=== PATIENT | female | born 1950 ===

== ENCOUNTER 2023-04-20 14:37 | Inpatient (IN) | payer MEDICARE, SELFPAY ==
--- NOTE | ~2023-04-20 | CT_ITS ---
EXAMINATION: CT head/brain wo IV con CLINICAL INFORMATION: Reason for Exam increase confusion COMPARISON: None. TECHNIQUE: Contiguous axial imaging was performed from the skull base to vertex without intravenous contrast. Sagittal and coronal reformatted images were obtained. This CT examination was performed using dose optimization techniques as appropriate, variously including the following: * Automated exposure control * Adjustment of mA and/or kV according to patient size (this includes techniques or standardized protocols for targeted exams where dose is matched to indication/reason for exam; i.e. extremities or head) Use of iterative reconstruction technique DLP: 582 mGy-cm FINDINGS: No acute osseous or soft tissue abnormality. The mastoids are clear. Right maxillary sinus mucous retention cyst. There is no evidence of acute intracranial hemorrhage or territorial infarction. No abnormal mass effect or midline shift is seen. Gandhi to white matter differentiation is well preserved. No extra-axial fluid collections are identified. No hydrocephalus. Proportional prominence of the ventricles and sulcal spaces is consistent with mild volume loss. Patchy periventricular and deep white matter hypoattenuation is consistent with mild small vessel ischemic changes. CT/CT head/brain wo IV con IMPRESSION: No acute intracranial abnormality including hemorrhage, mass effect, hydrocephalus, or acute territorial edematous infarction.
[2023-04-20 14:45] VITALS: BP 133/95; PULSE 85; RESP 18; TEMP 36.3; O2SAT 98
--- NOTE | 2023-04-20 15:04 | P.HPPS_ITS ---
HPI Date of Service: 04/20/23 Chief Complaint: Bipolar Sources of Information: patient interviewed, chart reviewed and crisis/core team assessment reviewed HPI Subjective Notes: Watkins Warning (given and shows understanding) and Conditional Voluntary Narrative: Mrs. Carter is a 73 year-old woman with hx of Bipolar Disorder who was brought on sect 12a from police to [facility] after son-in-law call reporting pt had endorse suicidal ideation with plan to OD due to misunderstanding that pt thought she was going on vacation with him and her grandchildren. Son-in-law was planning a vacation but not with pt. Per records, pt presented as guarded. She reported that neighbors had installed cameras to spy her. She denied SI/HI, but did acknowledge that she made comment to her son-in-law. Her utox was negative. CBC unremarkable. CMP- show slightly low potassium at 3.3, BUN 13, Creatinine 0.83. UA showed some elevation in WBC and leukocites but culture not done or not available. In the records, it also states that there were some concern in terms of confusion. Pt was seen by psychiatry while in the ED. It appears they communicated with her outpatient psychiatrist, Dr. Thomas who reports pt recently taken off lithium due to neurological concerns and pt was started on trileptal, increased in the ED to 600mg po BID, continued on olanzapine, which was increase while in the ED to 20mg po qhs. On the unit, pt presents as guarded, somewhat irritable and bothered that this parts data writer is asking questions, stating is all in my records. Pt reports she did report suicidal ideation with plan to OD to son-in-law. She reports I screwed up, I just want to go home. Pt reports my is driving me crazy. When asked to elaborate, pt changes topic and asks about the clothing that she has here, stating there is a bathing suit,which is not the case. When asked about hearing voices, pt reports that she does not hear voices but later reports that she has heard her son-in-law and talking about her. She reports she does not know what they were saying because it was soft but states she is sure they were talking about her. She denies suicidal or homicidal ideation. She reports fair sleep. She reports I don't take clonazepam for personal reasons. She reports back pain. She reports she feels unsteady on her feet, now ambulating with walker, although at home is independent. Pt would not provide more details as to why she feels unsteady in her feet. Past Psychiatric History: Inpatient: many in the past per record (no dates provided), last one 10/2020 OP: Dr. Thomas Past trials: olanzapine, lithium ( neurological se ), trileptal. Hx of suicide attempts: many in past no details provided Medical Evaluation Reviewed: Yes [facility] Family History: unknown Social History: Pt lives with . She has a daughter who in 2019 of cancer. She still has a living child. Substance History: None Trauma History: Per record, extensive childhood trauma. Trauma related to losing daughter back in 2019. Diagnostics Labs 04/21/23 06:11 Meds/Allergies Meds Home Medications Medication Instructions Recorded Confirmed Type benztropine 0.5 mg PO BID 04/20/23 04/20/23 History clonazepam 0.5 mg PO BEDTIME PRN Sleep 04/20/23 04/20/23 History cyclobenzaprine 10 mg tablet 10 mg PO TID PRN muscle spasm 04/20/23 04/20/23 History lithium carbonate 600 mg capsule 600 mg PO BEDTIME 04/20/23 04/20/23 History olanzapine 20 mg PO BEDTIME 04/20/23 04/20/23 History oxcarbazepine 300 mg PO DAILY 04/20/23 04/20/23 History oxcarbazepine 600 mg tablet 600 mg PO BEDTIME 04/20/23 04/20/23 History Allergies Allergies Allergy/AdvReac Type Severity Reaction Status Date / Time nickel Allergy Unknown Unknown Verified 04/20/23 15:12 Mental Status Exam Mental Status Exam Narrative: Appearance: wearing casual clothing, fair hygiene in NAD Behavior: guarded at times Psychomotor: no agitation or retardation noted Speech: clear, some mild delayed in response rate, regular rhythm/volume, spontaneous TP: mostly linear but some thought blocking and derailment at times TC: wanting to go home but at same time, asking about help with her health Mood: tired Affect: congruent SI: denies HI: denies AH/VH: denies but appears internally preoccupied. Delusions: somewhat guarded, not overt delusional content reported but some suspiciousness Insight/judgment: poor x 2. Memory/cog: alert, oriented to place, month, year. pending MOCA. Assessment & Plan Assessment & Plan (1) Bipolar 1 disorder, depressed: Status: Acute Code(s): F31.9 - Bipolar disorder, unspecified Plan Mr. Carter is a 73 year-old woman with hx of Bipolar type 1 Disorder who was brought on a sect 12a after she reported suicidal ideation with plan to OD after learning she was not going on vacation with son-in-law and grandchildren. Pt also apparently has reported that neighbors had cameras and were spying on her. Pt denies SI/HI. But does appear internally preoccupied with some thought blocking, reporting that and son-in-law were talking about her but she couldn't hear but was sure this was the case. Utox is neg. In the ED, trileptal was increased to 600mg po BID and olanzapine increased to 20mg po qhs. Pt reports unsteady gait, does not provide much detail but will assess ortho VS as she was ambulating independently at home. We discussed risks, benefits and alternative treatment options. PLAN 1. Admit to S1, 5 minutes checks 2. continue olanzapine 20mg po qhs- monitor Orth hotn, unsteady gait, over sedation 3. Continue trileptal 600mg po BID- monitor hyponatremia 4. Obtain collateral information 5. Aftercare planning. Patient educated on: diagnosis and medication risk/benefits Reason for continued inpatient stay Substantial Risk for: harm to self and inability to function Statement Statement: I have reviewed the history and physical and performed a pertinent examination on my patient. No changes have occurred unless specified. If the History and Physical was not performed prior to admission, the Hospitalist's service will be consulted for completing the admission physical. Time Spent With Patient Time: Total time managing care of this patient today ____ minutes.
[2023-04-20 18:00] VITALS: BP 136/88; PULSE 67; RESP 16; O2SAT 98
[2023-04-20 18:37] VITALS: BMI 22.9
--- NOTE | 2023-04-20 19:00 | PC.ADMIT ---
Pt. arrived on unit from [facility] ED at 14:45 via stretcher accompanied by 2 weapons mechanic. Transferred with assist of 2 to . Pt. signed CV . Oriented to room, unit, no smoking and visitor policies. Pt. A & O X 4. Not forthcoming with details related to situation in regard to events that led to her admission, but acknowledges events when confronted. Pt. with long history of Bipolar disorder and psych admissions, including after suicide by overdose attempts. Pt. lives in private home with . The lost a daughter to breast CA in 2019. daughter's and son live nearby. Pt. had thought she was to go on [place] vacation with son in law and grandson, had luggage packed, and when she learned she was not going threatened to kill herself, after which ANKITA notified EMS and pt. was transported to [facility] ED. Pt. has had major functional decline recently. She has had a shuffling gait, weakness, and reports multiple falls. She also reports she is newly incontinent, has lost weight, and has had problems with being disturbed by light. Pt. is requiring assist of 2 for transfers and walking a few steps. Pt.'s informed by phone of pt's admission.
[2023-04-20] MEDS: Benztropine Mesylate 0.5 MG TABLET PO (19:51)
[2023-04-20] MEDS: Lithium Carbonate 300 MG CAPSULE PO (19:52)
[2023-04-20] MEDS: traZODone HCL 50 MG TABLET PO (19:52)
[2023-04-20] MEDS: OLANZapine 5 MG TABLET PO (19:52)
[2023-04-20] MEDS: clonazePAM 0.5 MG TABLET PO (20:01)
--- NOTE | 2023-04-20 21:22 | PC.NURSE ---
Pt became agitated when 2100 medications reviewed with her. pt went into a rant about zyprexa. zyprexa is garbage and makes me sleepy . your a med nurse and would not understand. i'm going to get out of bed and fall on the floor and maybe you people will get it. pt shown call cannon location and instructed to call for assistance if getting oob. bed alarms activated. pt has thrown red socks on the floor.
[2023-04-21 06:00] VITALS: BP 121/83; PULSE 92; RESP 16
[2023-04-21 06:47] LABS: Alanine Aminotransferase 6 U/L (0-31); Albumin Level 3.5 g/dL (3.5-5.0); Alkaline Phosphatase 85 U/L (39-117); Anion Gap 13 (12-20); Aspartate Amino Transferase 11 U/L (5-31); Bilirubin Total 0.3 mg/dL (0.0-1.0); Blood Urea Nitrogen 9 mg/dL (9-16); Calcium 9.6 mg/dL (8.4-10.2); Carbon Dioxide 25 mmol/L (22-29); Chloride 108 mmol/L (96-108); Cholesterol 187 mg/dL; Creatinine Clr Calc Pharmacy 56.9; Estimated Glomerular Filt Rate > 60; Glucose Fasting 91 mg/dL (60-99); Glucose Random 91 mg/dL (60-115); HDL Cholesterol 33 mg/dL; LDL Cholesterol Calculated 124 mg/dl; Magnesium 2.1 mg/dL (1.6-2.6); Sodium 142 mmol/L (135-145); Total Protein 6.2 g/dL (6.5-8.0); Triglycerides 150 mg/dL
[2023-04-21 07:00] LABS: TSH reflex Free T4 0.35 uIU/mL (0.32-4.0)
[2023-04-21 07:01] LABS: Thyroid Stimulating Hormone 0.34 uIU/mL (0.32-4.0)
[2023-04-21 07:16] LABS: Folate 5.2 ng/mL (> or = 4.0); Vitamin B12 216 pg/mL (200-900)
[2023-04-21 07:54] LABS: Estimated Average Glucose 105 mg/dL; Hemoglobin A1c % 5.3 %
[2023-04-21] MEDS: Benztropine Mesylate 0.5 MG TABLET PO (08:39)
--- NOTE | 2023-04-21 12:44 | HO.PM.IMCN ---
History of Present Illness Data of Consult Service Date: 04/21/23 Primary Care Provider: Unknown Physician HPI Reason for consult: Admission H&P Pt is a 73-year-old female with a PMH significant for?bipolar disorder, anxiety, and depression who is admitted to [facility] for increasing depression with SI with plan to overdose on pills after she was not invited to a family trip to [place]. Medical consult for admission H&P. ?Patient has apparently been steady on her feet on the floor and was given a walker to ambulate, which is new for her. Patient states she sometimes has lower back pain but denies any lightheadedness or dizziness. Complains of soft, mushy stool for the past few weeks. Has been having 2 bowel movements per day when normally she would only have 1. He has also been experiencing increased urination recently. Patient denies fever, chills, nausea, vomiting. No abdominal pain. Denies chest pain/pressure, palpitations. No shortness of breath. Patient smokes 1/2 pack cigarettes a day. Labs reviewed, grossly unremarkable. [facility] Social History Household Members: Spouse Housing: House Do you presently have visiting nurse or other home services: No Patient Tobacco Use Status: Current everyday Tobacco user Tobacco use type: Cigarette Cigarette Packs Per Day: 0.5 Cigarettes Per Day: 10.0 Years Smoked: > 50 Smoked in Last 30 Days: Yes e-Cigarette/Vaping Use: Never Used Patient Interested in Nicotine Replacement: Yes (lozenges) Patient Given Instructions on How to Stop Smoking: No Second Hand Smoke Exposure: No Use of substances other than those prescribed or required for medical reasons: No Currently Displaying Signs/Symptoms of Drug Intoxication Withdrawal: No Any prior treatment program specific to substance use: No Have you been hit, kicked, punched, or otherwise hurt by someone within the past year? If so, by whom?: No Do you feel safe in your current relationship?: Yes Is there a partner from a previous relationship who is making you feel unsafe now?: No Are you made to feel afraid or neglected: No ( Except when they say they're tooo busy for me. ) Spiritual Healthcare Practices: No Adventism Healthcare Practices: No Cultural Healthcare Practices: No Advance Directives: No Advance Directives Information Provided: No (Medical Condition) Do you have thoughts of harming others: None Do you have a plan to hurt others: No Plan Recently lost weight without trying: Yes How much weight loss: 24-33 pounds Eating poorly because of decreased appetite: Yes Nutrition screen score: 6 Nutrition Risks: Poor intake 0-25% >4 days Patient : No : No Poor oral hygiene: No service: No Sexual orientation: Straight/Heterosexual Meds Allergies Allergy/AdvReac Type Severity Reaction Status Date / Time nickel Allergy Unknown Unknown Verified 04/20/23 15:12 Active Medications: Current Medications Acetaminophen (Acetaminophen 325 Mg Tablet) 650 mg PO Q6H PRN PRN Reason: Headache/Pain Mild Scale (1-3) Al Hydroxide/Mg Hydroxide (Magnesium Hydrox/Alum Hydrox 30 Ml Oral.Susp) 30 ml PO Q6H PRN PRN Reason: Heartburn/Nausea Benztropine Mesylate (Benztropine Mesylate 0.5 Mg Tablet) 0.5 mg PO BID VELASQUEZ Last Admin: 04/21/23 08:39 Dose: 0.5 mg Clonazepam (Clonazepam 0.5 Mg Tablet) 0.5 mg PO BEDTIME PRN PRN Reason: Sleep Last Admin: 04/20/23 20:01 Dose: 0.5 mg Cyclobenzaprine HCl (Cyclobenzaprine Hcl 10 Mg Tablet) 10 mg PO TID PRN PRN Reason: muscle spasm Hydroxyzine HCl (Hydroxyzine Hcl 25 Mg Tablet) 25 mg PO Q6H PRN PRN Reason: Anxiety Magnesium Hydroxide (Milk Of Magnesia 30 Ml Oral.Susp) 30 ml PO DAILY PRN PRN Reason: Constipation Olanzapine (Olanzapine 5 Mg Tablet) 5 mg PO BEDTIME VELASQUEZ Last Admin: 04/20/23 19:52 Dose: 5 mg Olanzapine (Olanzapine 5 Mg Tablet) 5 mg PO TID PRN PRN Reason: agitation Trazodone HCl (Trazodone Hcl 50 Mg Tablet) 50 mg PO BEDTIME PRN PRN Reason: Insomnia Last Admin: 04/20/23 19:52 Dose: 50 mg Home Medications Medication Instructions Recorded Confirmed Last Taken Type benztropine 0.5 mg PO BID 04/20/23 04/20/23 Unknown History clonazepam 0.5 mg PO BEDTIME PRN Sleep 04/20/23 04/20/23 Unknown History cyclobenzaprine 10 mg tablet 10 mg PO TID PRN muscle spasm 04/20/23 04/20/23 Unknown History lithium carbonate 600 mg capsule 600 mg PO BEDTIME 04/20/23 04/20/23 Unknown History olanzapine 20 mg PO BEDTIME 04/20/23 04/20/23 Unknown History oxcarbazepine 300 mg PO DAILY 04/20/23 04/20/23 Unknown History oxcarbazepine 600 mg tablet 600 mg PO BEDTIME 04/20/23 04/20/23 Unknown History Physical Exam Vital Signs and Narrative: Vital Signs: Last Vital Signs Temp 97.3 F 04/20/23 14:45 Pulse 92 04/21/23 06:00 Resp 16 04/21/23 06:00 BP 121/83 04/21/23 06:00 Pulse Ox 98 04/20/23 18:00 O2 Del Method Room Air 04/21/23 06:00 BMI result Body Mass Index 22.9 Constitutional: Alert, in no acute distress. Mental Status: Oriented to person, place and time. Eyes: Pupils are equal, round, and reactive to light. Ear, Nose, and Throat: Oropharynx clear, mucous membranes moist. Ears and nose without deformities. Trachea midline. Respiratory: Clear to auscultation bilaterally. No wheezing, rales, or rhonchi. Cardiovascular: S1, S2 regular. No murmurs, rubs, or gallops. Gastrointestinal: Abdomen soft, non-tender, non-distended. Normal bowel sounds. Neurologic: Cranial nerves II-XII are grossly intact bilaterally. No focal neurological deficits. Moves all extremities spontaneously. Skin: No rashes or lesions noted. Musculoskeletal: No cyanosis or clubbing. Extremities: No edema. Results Labs 04/21/23 06:11 Labs: Laboratory Results - last 24 hr 04/21/23 04/21/23 04/21/23 06:11 06:11 06:11 Anion Gap 13 Estim Creat Clear Calc 56.9 Estimated GFR > 60 Random Glucose 91 Fasting Glucose 91 Estimat Average Glucose 105 Hemoglobin A1c % 5.3 Calcium 9.6 Magnesium 2.1 Total Bilirubin 0.3 AST 11 ALT 6 Alkaline Phosphatase 85 Total Protein 6.2 L Albumin 3.5 Triglycerides 150 Cholesterol 187 LDL Cholesterol, Calc 124 HDL Cholesterol 33 Vitamin B12 216 Folate 5.2 TSH 0.34 04/21/23 06:11 Anion Gap Estim Creat Clear Calc Estimated GFR Random Glucose Fasting Glucose Estimat Average Glucose Hemoglobin A1c % Calcium Magnesium Total Bilirubin AST ALT Alkaline Phosphatase Total Protein Albumin Triglycerides Cholesterol LDL Cholesterol, Calc HDL Cholesterol Vitamin B12 Folate TSH 0.35 Assessment and Plan (1) Routine history and physical examination of adult: Status: Acute Plan Pt is a 73-year-old female with a PMH significant for?bipolar disorder, anxiety, and depression who is admitted to [facility] for increasing depression with SI with plan to overdose on pills after she was not invited to a family trip to [place]. Medical consult for admission H&P. Mood disorder Plan as per Psychiatry Polyuria Will obtain UA Follow UA, cultures Unsteadiness of feet Pt has been ambulating with walker while on unit, which is new to her Check orthostatics PT consult Continue use of walker as necessary Nicotine dependence NRT: jose antonio Thank you for allowing us to participate in the care of this patient. Will follow UA resutls. Please let us know if there are any acute complaints or questions. Time Spent With Patient Time: Total time managing care of this patient today ____ minutes.
--- NOTE | 2023-04-21 13:45 | MHC.CLN ---
NUTRITION CONSULT FOR WEIGHT LOSS. UNABLE TO CONFIRM WEIGHT HX. CURRENT BMI=22.9 WITHIN NORMAL LIMITS. OBSERVED AT LUNCH TODAY. EATING CHICKEN FROM [employer] BUT STATED THAT SHE WANTED SOMETHING ELSE. ALERTED STAFF. FOLLOW UP WEEKLY FOR INTAKE AND WEIGHT.
--- NOTE | 2023-04-21 14:55 | P.PNPSI_ITS ---
Subjective Subjective Date of Service: 04/21/23 Reason For Visit: Bipolar Subjective Notes: Conditional Voluntary Interim History: Pt continues to denied suicidal or homicidal ideation. She talks about son in law and talking about her. She presents as guarded at times. She states I also have confusion. She slept through the night. No behavioral concerns. Review of Systems Review of Systems Pt denies chest pain. She reports feeling like there is dirt in her eyes She reports loose stools. She reports poor appetite She reports back pain and feeling weak. Mental Status Exam Mental Status Exam Narrative: Appearance: wearing casual clothing, fair hygiene in NAD Behavior: guarded at times Psychomotor: no agitation or retardation noted Speech: clear, some mild delayed in response rate, regular rhythm/volume, spontaneous TP: mostly linear but some thought blocking and derailment at times TC: wanting to go home but at same time, asking about help with her health Mood: tired Affect: congruent SI: denies HI: denies AH/VH: denies but appears internally preoccupied. Delusions: somewhat guarded, not overt delusional content reported but some suspiciousness Insight/judgment: poor x 2. Memory/cog: alert, oriented to place, month, year. pending MOCA. Diagnostics Vital Signs (24Hr): Vital Signs - 24 hr 04/20/23 18:00 04/21/23 06:00 Pulse Rate 67 92 Respiratory Rate 16 16 Blood Pressure 136/88 121/83 Pulse Oximetry 98 Oxygen Delivery Method Room Air Room Air BMI result Body Mass Index 22.9 Labs 04/21/23 06:11 Labs: Laboratory Results - last 48 hr 04/21/23 04/21/23 04/21/23 06:11 06:11 06:11 Sodium 142 Potassium 4.0 Chloride 108 Carbon Dioxide 25 Anion Gap 13 BUN 9 Creatinine 0.75 Estim Creat Clear Calc 56.9 Estimated GFR > 60 Random Glucose 91 Fasting Glucose 91 Estimat Average Glucose 105 Hemoglobin A1c % 5.3 Calcium 9.6 Magnesium 2.1 Total Bilirubin 0.3 AST 11 ALT 6 Alkaline Phosphatase 85 Total Protein 6.2 L Albumin 3.5 Triglycerides 150 Cholesterol 187 LDL Cholesterol, Calc 124 HDL Cholesterol 33 Vitamin B12 216 Folate 5.2 TSH 0.34 04/21/23 06:11 Sodium Potassium Chloride Carbon Dioxide Anion Gap BUN Creatinine Estim Creat Clear Calc Estimated GFR Random Glucose Fasting Glucose Estimat Average Glucose Hemoglobin A1c % Calcium Magnesium Total Bilirubin AST ALT Alkaline Phosphatase Total Protein Albumin Triglycerides Cholesterol LDL Cholesterol, Calc HDL Cholesterol Vitamin B12 Folate TSH 0.35 Medications Medications Current Medications Acetaminophen (Acetaminophen 325 Mg Tablet) 650 mg PO Q6H PRN PRN Reason: Headache/Pain Mild Scale (1-3) Al Hydroxide/Mg Hydroxide (Magnesium Hydrox/Alum Hydrox 30 Ml Oral.Susp) 30 ml PO Q6H PRN PRN Reason: Heartburn/Nausea Benztropine Mesylate (Benztropine Mesylate 0.5 Mg Tablet) 0.5 mg PO BID VELASQUEZ Last Admin: 04/21/23 08:39 Dose: 0.5 mg Clonazepam (Clonazepam 0.5 Mg Tablet) 0.5 mg PO BEDTIME PRN PRN Reason: Sleep Last Admin: 04/20/23 20:01 Dose: 0.5 mg Cyclobenzaprine HCl (Cyclobenzaprine Hcl 10 Mg Tablet) 10 mg PO TID PRN PRN Reason: muscle spasm Hydroxyzine HCl (Hydroxyzine Hcl 25 Mg Tablet) 25 mg PO Q6H PRN PRN Reason: Anxiety Magnesium Hydroxide (Milk Of Magnesia 30 Ml Oral.Susp) 30 ml PO DAILY PRN PRN Reason: Constipation Nicotine Polacrilex (Nicotine Polacrilex 2 Mg Gum) 2 mg BUCCAL Q2H PRN PRN Reason: Nicotine Cravings Olanzapine (Olanzapine 5 Mg Tablet) 5 mg PO TID PRN PRN Reason: agitation Olanzapine (Olanzapine 10 Mg Tablet) 10 mg PO BEDTIME VELASQUEZ Oxcarbazepine (Oxcarbazepine 300 Mg Tablet) 600 mg PO BID VELASQUEZ Trazodone HCl (Trazodone Hcl 50 Mg Tablet) 50 mg PO BEDTIME PRN PRN Reason: Insomnia Last Admin: 04/20/23 19:52 Dose: 50 mg Allergies Allergies Allergy/AdvReac Type Severity Reaction Status Date / Time nickel Allergy Unknown Unknown Verified 04/20/23 15:12 Assessment & Plan Assessment & Plan (1) Bipolar 1 disorder, depressed: Status: Acute Code(s): F31.9 - Bipolar disorder, unspecified Plan Mr. Carter is a 73 year-old woman with hx of Bipolar type 1 Disorder who was brought on a sect 12a after she reported suicidal ideation with plan to OD after learning she was not going on vacation with son-in-law and grandchildren. Pt also apparently has reported that neighbors had cameras and were spying on her. Pt denies SI/HI. But does appear internally preoccupied with some thought blocking, reporting that and son-in-law were talking about her but she couldn't hear but was sure this was the case. Utox is neg. In the ED, trileptal was increased to 600mg po BID and olanzapine increased to 20mg po qhs. Pt reports unsteady gait, does not provide much detail but will assess ortho VS as she was ambulating independently at home. We discussed risks, benefits and alternative treatment options. PLAN 1. Admit to S1, 5 minutes checks 2. continue olanzapine 20mg po qhs- monitor Orth hotn, unsteady gait, over sedat ion 3. Continue trileptal 600mg po BID- monitor hyponatremia 4. Obtain collateral information 5. Aftercare planning. 04/21 continue tx. Reason for continued inpatient stay Substantial Risk for: inability to function Time Spent With Patient Time: Total time managing care of this patient today ____ minutes.
[2023-04-21 17:20] VITALS: BP 93/64; PULSE 104
[2023-04-21 20:00] VITALS: BP 104/69; PULSE 79; RESP 17; TEMP 36.7; O2SAT 96
[2023-04-21] MEDS: OXcarbazepine 300 MG TABLET 600 MG PO (20:52)
[2023-04-21] MEDS: traZODone HCL 50 MG TABLET PO (20:52)
[2023-04-21] MEDS: OLANZapine 10 MG TABLET 20 MG PO (20:53)
[2023-04-22 08:00] VITALS: BP 119/87; PULSE 102; RESP 18; TEMP 36.6; O2SAT 96
[2023-04-22] MEDS: OXcarbazepine 300 MG TABLET 600 MG PO ×2 (09:13→20:28)
--- NOTE | 2023-04-22 09:58 | HO.PSYCHPN ---
Subjective Subjective Date of Service: 04/22/23 Reason For Visit: Bipolar Interim History: Patient seen 04 22 23 case reviewed with nursing staff patient seen approximately 09:30. Patient is having difficulty with ambulation complaining of sedation less irritable and agitated admits to history of bipolar disorder. States she and her have not been getting along patient was seen by PT has a walker was not using a walker at home reportedly Medication Compliance: Yes Side effects from medications: Yes Mental Status Exam Mental Status Exam Narrative: Appearance: wearing casual clothing, tearful sad looking Behavior: guarded at times Psychomotor: Psychomotor retarded complains of lethargy Speech: clear, some mild delayed in response rate, regular rhythm/volume, spontaneous TP: mostly linear but some circumstantiality TC: wanting to go home , does state she and her have been arguing poverty of content Mood: tired Affect: congruent SI: denies HI: denies AH/VH: denies Delusions: somewhat guarded, no overt delusional content Insight/judgment: Does accept that she has psychiatric illness she has a history of bipolar disorder Memory/cog: alert, oriented to place, month, year. pending MOCA. Diagnostics Vital Signs (24Hr): Vital Signs - 24 hr 04/21/23 17:20 04/21/23 20:00 04/22/23 08:00 Temperature 98.0 F 97.8 F Pulse Rate 104 H 79 102 H Respiratory Rate 17 18 Blood Pressure 93/64 104/69 119/87 Pulse Oximetry 96 96 Oxygen Delivery Method Room Air Room Air BMI result Body Mass Index 22.9 Labs 04/21/23 06:11 Labs: Laboratory Results - last 48 hr 04/21/23 04/21/23 04/21/23 06:11 06:11 06:11 Sodium 142 Potassium 4.0 Chloride 108 Carbon Dioxide 25 Anion Gap 13 BUN 9 Creatinine 0.75 Estim Creat Clear Calc 56.9 Estimated GFR > 60 Random Glucose 91 Fasting Glucose 91 Estimat Average Glucose 105 Hemoglobin A1c % 5.3 Calcium 9.6 Magnesium 2.1 Total Bilirubin 0.3 AST 11 ALT 6 Alkaline Phosphatase 85 Total Protein 6.2 L Albumin 3.5 Triglycerides 150 Cholesterol 187 LDL Cholesterol, Calc 124 HDL Cholesterol 33 Vitamin B12 216 Folate 5.2 TSH 0.34 04/21/23 06:11 Sodium Potassium Chloride Carbon Dioxide Anion Gap BUN Creatinine Estim Creat Clear Calc Estimated GFR Random Glucose Fasting Glucose Estimat Average Glucose Hemoglobin A1c % Calcium Magnesium Total Bilirubin AST ALT Alkaline Phosphatase Total Protein Albumin Triglycerides Cholesterol LDL Cholesterol, Calc HDL Cholesterol Vitamin B12 Folate TSH 0.35 Medications Medications Current Medications Acetaminophen (Acetaminophen 325 Mg Tablet) 650 mg PO Q6H PRN PRN Reason: Headache/Pain Mild Scale (1-3) Al Hydroxide/Mg Hydroxide (Magnesium Hydrox/Alum Hydrox 30 Ml Oral.Susp) 30 ml PO Q6H PRN PRN Reason: Heartburn/Nausea Capsaicin (Capsaicin 0.025% Cream 60 Gm Tube) 1 appl TOPICAL TID PRN; Protocol PRN Reason: Pain, Moderate(Pain Scale 4-6) Clonazepam (Clonazepam 0.5 Mg Tablet) 0.5 mg PO BEDTIME PRN PRN Reason: Sleep Last Admin: 04/20/23 20:01 Dose: 0.5 mg Cyclobenzaprine HCl (Cyclobenzaprine Hcl 10 Mg Tablet) 10 mg PO TID PRN PRN Reason: muscle spasm Hydroxyzine HCl (Hydroxyzine Hcl 25 Mg Tablet) 25 mg PO Q6H PRN PRN Reason: Anxiety Loperamide HCl (Loperamide Hcl 2 Mg Capsule) 2 mg PO Q4H PRN PRN Reason: Loose Stool Magnesium Hydroxide (Milk Of Magnesia 30 Ml Oral.Susp) 30 ml PO DAILY PRN PRN Reason: Constipation Nicotine Polacrilex (Nicotine Polacrilex 2 Mg Gum) 2 mg BUCCAL Q2H PRN PRN Reason: Nicotine Cravings Olanzapine (Olanzapine 5 Mg Tablet) 5 mg PO TID PRN PRN Reason: agitation Olanzapine (Olanzapine 10 Mg Tablet) 20 mg PO BEDTIME [facility] Last Admin: 04/21/23 20:53 Dose: 20 mg Oxcarbazepine (Oxcarbazepine 300 Mg Tablet) 600 mg PO BID [facility] Last Admin: 04/22/23 09:13 Dose: 600 mg Trazodone HCl (Trazodone Hcl 50 Mg Tablet) 50 mg PO BEDTIME PRN PRN Reason: Insomnia Last Admin: 04/21/23 20:52 Dose: 50 mg Allergies Allergies Allergy/AdvReac Type Severity Reaction Status Date / Time nickel Allergy Unknown Unknown Verified 04/20/23 15:12 Assessment & Plan Assessment & Plan (1) Bipolar 1 disorder, depressed: Status: Acute Code(s): F31.9 - Bipolar disorder, unspecified Plan Mr. Carter is a 73 year-old woman with hx of Bipolar type 1 Disorder who was brought on a sect 12a after she reported suicidal ideation with plan to OD after learning she was not going on vacation with son-in-law and grandchildren. Pt also apparently has reported that neighbors had cameras and were spying on her. Pt denies SI/HI. But does appear internally preoccupied with some thought blocking, reporting that and son-in-law were talking about her but she couldn't hear but was sure this was the case. Utox is neg. In the ED, trileptal was increased to 600mg po BID and olanzapine increased to 20mg po qhs. Pt reports unsteady gait, does not provide much detail but will assess ortho VS as she was ambulating independently at home. We discussed risks, benefits and alternative treatment options. PLAN 1. Admit to S1, 5 minutes checks 2. continue olanzapine 20mg po qhs- monitor Orth hotn, unsteady gait, over sedation 3. Continue trileptal 600mg po BID- monitor hyponatremia 4. Obtain collateral information 5. Aftercare planning. 04/21 continue tx. 04/22/2023 Patient seen and a.m. on 04/22 case reviewed with nursing staff. Patient having difficulty with ambulation and balance difficulties. He is on Trileptal 600 b.i.d. given the fact that she was ambulating without a walker at home would try and change to 300 b.i.d. consideration could be given to use of pot Depakote at bedtime instead of Trileptal patient not grossly delusional appears depressed withdrawn consideration could be given to [facility] Spears which trying to coordinate care with outpatient psychiatrist in [place] Patient educated on: diagnosis and medication risk/benefits Informed Consent: further education needed Reason for continued inpatient stay Substantial Risk for: harm to others, inability to function and rapid decompensation Time Spent With Patient Time: Total time managing care of this patient today ____ minutes.
--- NOTE | 2023-04-22 16:19 | PC.NURSE ---
orthostatic vital signs taken at 1600.Supine 142/92 pulse 77, sitting 144/89 pulse 87, standing 138/83 pulse 97.
[2023-04-22 16:52] LABS: Appearance Urine Clear; Color Urine Yellow; Glucose Urine UA Negative (Negative); Leukocyte Esterase Urine Moderate (2+) (Negative); Nitrite Urine Negative (Negative); Specific Gravity - Urine 1.015 (1.005-1.025); UMIC TRIGGER UACC YES; Urine Blood Small (1+) (Negative); Urine Ketones Negative (Negative); Urine Protein Negative (Neg-Trace)
[2023-04-22 16:55] LABS: Bacteria Urine None Seen (None Seen); UACC Culture Trigger YES
--- NOTE | 2023-04-22 18:34 | PC.NURSE ---
Patient UA obtained. Dr. Jackson notified of results. Patient denies symptoms. Question of contamination.
[2023-04-22 19:45] VITALS: BP 119/85; PULSE 88; RESP 17; TEMP 36.5; O2SAT 96
[2023-04-22] MEDS: OLANZapine 10 MG TABLET 20 MG PO (20:28)
[2023-04-22] MEDS: clonazePAM 0.5 MG TABLET PO (20:31)
[2023-04-23 08:27] VITALS: BP 151/88; PULSE 88; RESP 18; TEMP 36.2; O2SAT 97
[2023-04-23] MEDS: OXcarbazepine 300 MG TABLET PO ×2 (08:41→21:01)
--- NOTE | 2023-04-23 10:30 | P.PNPSI_ITS ---
Subjective Subjective Date of Service: 04/23/23 Reason For Visit: Bipolar Interim History: Pt reports she feels depressed. She denies SI, but does report long hx of suicidal ideation. Her thought process is disorganized, she talks about her grandson not being told where she is and now she has to hide it. When asked if she can just tell him that she was in the hospital, pt goes on and on that he doesn't know. She also talks about her , he knows it all when asked to elaborate, she would not provide more information. She denies physical concerns including pain. She states she is confused but is oriented x 4. No aggression, will gathered more collateral information Medication Compliance: Yes Review of Systems Review of Systems Pt denies chest pain. She reports feeling like there is dirt in her eyes She reports loose stools. She reports poor appetite She reports back pain and feeling weak. Mental Status Exam Mental Status Exam Narrative: Appearance: wearing casual clothing, tearful sad looking Behavior: guarded at times Psychomotor: Psychomotor retarded complains of lethargy Speech: clear, some mild delayed in response rate, regular rhythm/volume, spontaneous TP: mostly linear but some circumstantiality TC: wanting to go home , does state she and her have been arguing poverty of content Mood: tired Affect: congruent SI: denies HI: denies AH/VH: denies Delusions: somewhat guarded, no overt delusional content Insight/judgment: Does accept that she has psychiatric illness she has a history of bipolar disorder Memory/cog: alert, oriented to place, month, year. pending MOCA. Diagnostics Vital Signs (24Hr): Vital Signs - 24 hr 04/22/23 19:45 04/23/23 08:27 Temperature 97.7 F 97.1 F Pulse Rate 88 88 Respiratory Rate 17 18 Blood Pressure 119/85 151/88 H Pulse Oximetry 96 97 Oxygen Delivery Method Room Air Room Air BMI result Body Mass Index 22.9 Labs 04/21/23 06:11 Labs: Laboratory Results - last 48 hr 04/22/23 16:12 Urine Color Yellow Urine Appearance Clear Urine pH 6.0 Ur Specific [place] 1.015 Urine Protein Negative Urine Glucose (UA) Negative Urine Ketones Negative Urine Blood Small (1+) H Urine Nitrite Negative Ur Leukocyte Esterase Moderate (2+) H Urine RBC 6-10 H Urine WBC 11-20 H Ur Squamous Epith Cells 6-10 Urine Bacteria None Seen Hyaline Casts 3-5 Medications Medications Current Medications Acetaminophen (Acetaminophen 325 Mg Tablet) 650 mg PO Q6H PRN PRN Reason: Headache/Pain Mild Scale (1-3) Al Hydroxide/Mg Hydroxide (Magnesium Hydrox/Alum Hydrox 30 Ml Oral.Susp) 30 ml PO Q6H PRN PRN Reason: Heartburn/Nausea Capsaicin (Capsaicin 0.025% Cream 60 Gm Tube) 1 appl TOPICAL TID PRN; Protocol PRN Reason: Pain, Moderate(Pain Scale 4-6) Clonazepam (Clonazepam 0.5 Mg Tablet) 0.5 mg PO BEDTIME PRN PRN Reason: Sleep Last Admin: 04/22/23 20:31 Dose: 0.5 mg Cyclobenzaprine HCl (Cyclobenzaprine Hcl 10 Mg Tablet) 10 mg PO TID PRN PRN Reason: muscle spasm Hydroxyzine HCl (Hydroxyzine Hcl 25 Mg Tablet) 25 mg PO Q6H PRN PRN Reason: Anxiety Loperamide HCl (Loperamide Hcl 2 Mg Capsule) 2 mg PO Q4H PRN PRN Reason: Loose Stool Magnesium Hydroxide (Milk Of Magnesia 30 Ml Oral.Susp) 30 ml PO DAILY PRN PRN Reason: Constipation Nicotine Polacrilex (Nicotine Polacrilex 2 Mg Gum) 2 mg BUCCAL Q2H PRN PRN Reason: Nicotine Cravings Olanzapine (Olanzapine 5 Mg Tablet) 5 mg PO TID PRN PRN Reason: agitation Olanzapine (Olanzapine 10 Mg Tablet) 20 mg PO BEDTIME [facility] Last Admin: 04/22/23 20:28 Dose: 20 mg Oxcarbazepine (Oxcarbazepine 300 Mg Tablet) 300 mg PO BID [facility] Last Admin: 04/23/23 08:41 Dose: 300 mg Trazodone HCl (Trazodone Hcl 50 Mg Tablet) 50 mg PO BEDTIME PRN PRN Reason: Insomnia Last Admin: 04/21/23 20:52 Dose: 50 mg Allergies Allergies Allergy/AdvReac Type Severity Reaction Status Date / Time nickel Allergy Unknown Unknown Verified 04/20/23 15:12 Assessment & Plan Assessment & Plan (1) Bipolar 1 disorder, depressed: Status: Acute Code(s): F31.9 - Bipolar disorder, unspecified Plan Mr. Carter is a 73 year-old woman with hx of Bipolar type 1 Disorder who was brought on a sect 12a after she reported suicidal ideation with plan to OD after learning she was not going on vacation with son-in-law and grandchildren. Pt also apparently has reported that neighbors had cameras and were spying on her. Pt denies SI/HI. But does appear internally preoccupied with some thought blocking, reporting that and son-in-law were talking about her but she couldn't hear but was sure this was the case. Utox is neg. In the ED, trileptal was increased to 600mg po BID and olanzapine increased to 20mg po qhs. Pt reports unsteady gait, does not provide much detail but will assess ortho VS as she was ambulating independently at home. We discussed risks, benefits and alternative treatment options. PLAN 1. Admit to S1, 5 minutes checks 2. continue olanzapine 20mg po qhs- monitor Orth hotn, unsteady gait, over sedation 3. Continue trileptal 600mg po BID- monitor hyponatremia 4. Obtain collateral information 5. Aftercare planning. 04/21 continue tx. 04/22/2023 Patient seen and a.m. on 04/22 case reviewed with nursing staff. Patient having difficulty with ambulation and balance difficulties. He is on Trileptal 600 b.i.d. given the fact that she was ambulating without a walker at home would try and change to 300 b.i.d. consideration could be given to use of pot Depakote at bedtime instead of Trileptal patient not grossly delusional appears depressed withdrawn consideration could be given to [facility] Spears which trying to coordinate care with outpatient psychiatrist in [place] 04/23 will lower olanzapine to 10mg po qhs due to pts' report of feeling sedated, although she does not appear this way. Reason for continued inpatient stay Substantial Risk for: inability to function Time Spent With Patient Time: Total time managing care of this patient today ____ minutes.
[2023-04-23] MEDS: hydrOXYzine HCL 25 MG TABLET PO (14:35)
[2023-04-23 18:00] VITALS: BP 153/83; PULSE 83; RESP 18; TEMP 36.6; O2SAT 99
[2023-04-23] MEDS: OLANZapine 10 MG TABLET PO (21:02)
[2023-04-23] MEDS: clonazePAM 0.5 MG TABLET PO (22:01)
[2023-04-24 08:00] VITALS: BP 137/92; PULSE 93; RESP 18; TEMP 36.4; O2SAT 96
--- NOTE | 2023-04-24 08:09 | HO.PSYCHPN ---
Subjective Subjective Date of Service: 04/24/23 Reason For Visit: Bipolar Interim History: The nursing staff reported the patient had been shuffling with unsteady gait. Her Zyprexa was lowered and she stated that she does not want to go home. She took her p.r.n. Klonopin at night and slept well after the medication. On interview the patient is pleasantly confused no changes in her mental status. Mental Status Exam Mental Status Exam Patient Appearance: Appropriate Patient Orientation: Person Level of Consciousness: Awake Patient Behavior: Guarded and Passive Mood Description: Withdrawn Affect Description: Constricted Patient Cognition Impaired: Yes Ability to Follow Directions: Good Speech Pattern: Clear Hallucinations: None Delusions: Not Present Thought Process: Illogical, Distracted and Slowed Thinking Thought Content: positive for [place] and positive for Poverty of Content Judgement: Fair Diagnostics Vital Signs (24Hr): Vital Signs - 24 hr 04/23/23 08:27 04/23/23 18:00 Temperature 97.1 F 97.8 F Pulse Rate 88 83 Respiratory Rate 18 18 Blood Pressure 151/88 H 153/83 H Pulse Oximetry 97 99 Oxygen Delivery Method Room Air Room Air BMI result Body Mass Index 22.9 Labs 04/21/23 06:11 Labs: Laboratory Results - last 48 hr 04/22/23 16:12 Urine Color Yellow Urine Appearance Clear Urine pH 6.0 Ur Specific [place] 1.015 Urine Protein Negative Urine Glucose (UA) Negative Urine Ketones Negative Urine Blood Small (1+) H Urine Nitrite Negative Ur Leukocyte Esterase Moderate (2+) H Urine RBC 6-10 H Urine WBC 11-20 H Ur Squamous Epith Cells 6-10 Urine Bacteria None Seen Hyaline Casts 3-5 Medications Medications Current Medications Acetaminophen (Acetaminophen 325 Mg Tablet) 650 mg PO Q6H PRN PRN Reason: Headache/Pain Mild Scale (1-3) Al Hydroxide/Mg Hydroxide (Magnesium Hydrox/Alum Hydrox 30 Ml Oral.Susp) 30 ml PO Q6H PRN PRN Reason: Heartburn/Nausea Capsaicin (Capsaicin 0.025% Cream 60 Gm Tube) 1 appl TOPICAL TID PRN; Protocol PRN Reason: Pain, Moderate(Pain Scale 4-6) Clonazepam (Clonazepam 0.5 Mg Tablet) 0.5 mg PO BEDTIME PRN PRN Reason: Sleep Last Admin: 04/23/23 22:01 Dose: 0.5 mg Cyclobenzaprine HCl (Cyclobenzaprine Hcl 10 Mg Tablet) 10 mg PO TID PRN PRN Reason: muscle spasm Hydroxyzine HCl (Hydroxyzine Hcl 25 Mg Tablet) 25 mg PO Q6H PRN PRN Reason: Anxiety Last Admin: 04/23/23 14:35 Dose: 25 mg Loperamide HCl (Loperamide Hcl 2 Mg Capsule) 2 mg PO Q4H PRN PRN Reason: Loose Stool Magnesium Hydroxide (Milk Of Magnesia 30 Ml Oral.Susp) 30 ml PO DAILY PRN PRN Reason: Constipation Nicotine Polacrilex (Nicotine Polacrilex 2 Mg Gum) 2 mg BUCCAL Q2H PRN PRN Reason: Nicotine Cravings Olanzapine (Olanzapine 5 Mg Tablet) 5 mg PO TID PRN PRN Reason: agitation Olanzapine (Olanzapine 10 Mg Tablet) 10 mg PO BEDTIME [facility] Last Admin: 04/23/23 21:02 Dose: 10 mg Oxcarbazepine (Oxcarbazepine 300 Mg Tablet) 300 mg PO BID [facility] Last Admin: 04/23/23 21:01 Dose: 300 mg Trazodone HCl (Trazodone Hcl 50 Mg Tablet) 50 mg PO BEDTIME PRN PRN Reason: Insomnia Last Admin: 04/21/23 20:52 Dose: 50 mg Allergies Allergies Allergy/AdvReac Type Severity Reaction Status Date / Time nickel Allergy Unknown Unknown Verified 04/20/23 15:12 Assessment & Plan Assessment & Plan (1) Bipolar 1 disorder, depressed: Status: Acute Code(s): F31.9 - Bipolar disorder, unspecified Plan Mr. Carter is a 73 year-old woman with hx of Bipolar type 1 Disorder who was brought on a sect 12a after she reported suicidal ideation with plan to OD after learning she was not going on vacation with son-in-law and grandchildren. Pt also apparently has reported that neighbors had cameras and were spying on her. Pt denies SI/HI. But does appear internally preoccupied with some thought blocking, reporting that and son-in-law were talking about her but she couldn't hear but was sure this was the case. Utox is neg. In the ED, trileptal was increased to 600mg po BID and olanzapine increased to 20mg po qhs. Pt reports unsteady gait, does not provide much detail but will assess ortho VS as she was ambulating independently at home. We discussed risks, benefits and alternative treatment options. PLAN 1. Admit to S1, 5 minutes checks 2. continue olanzapine 20mg po qhs- monitor Orth hotn, unsteady gait, over sedation 3. Continue trileptal 600mg po BID- monitor hyponatremia 4. Obtain collateral information 5. Aftercare planning. 04/21 continue tx. 04/22/2023 Patient seen and a.m. on 04/22 case reviewed with nursing staff. Patient having difficulty with ambulation and balance difficulties. He is on Trileptal 600 b.i.d. given the fact that she was ambulating without a walker at home would try and change to 300 b.i.d. consideration could be given to use of pot Depakote at bedtime instead of Trileptal patient not grossly delusional appears depressed withdrawn consideration could be given to [facility] Spears which trying to coordinate care with outpatient psychiatrist in [place] 04/23 will lower olanzapine to 10mg po qhs due to pts' report of feeling sedated, although she does not appear this way. 04/24 keep same medications Reason for continued inpatient stay Substantial Risk for: inability to function, rapid decompensation and med/psych decompensation Time Spent With Patient Time: Total time managing care of this patient today __20__ minutes.
[2023-04-24] MEDS: OXcarbazepine 300 MG TABLET PO ×2 (09:09→20:49)
[2023-04-24] MEDS: OLANZapine 5 MG TABLET PO (13:47)
[2023-04-24 18:00] VITALS: BP 157/92; PULSE 79; RESP 18; TEMP 35.7; O2SAT 97
[2023-04-24] MEDS: OLANZapine 10 MG TABLET PO (20:49)
[2023-04-24] MEDS: clonazePAM 0.5 MG TABLET PO (22:06)
[2023-04-25 08:00] VITALS: BP 139/91; PULSE 75; RESP 18; TEMP 36.4; O2SAT 98
[2023-04-25] MEDS: OXcarbazepine 300 MG TABLET PO ×2 (08:29→20:04)
--- NOTE | 2023-04-25 08:35 | P.PNPSI_ITS ---
Subjective Subjective Date of Service: 04/25/23 Reason For Visit: Bipolar Interim History: The nursing staff reported the patient had been medication compliant, she slept well last night. She remains labile and anxious but improved with Ativan. On interview the patient remains anxious but able to cope it. No changes in her mental status. Mental Status Exam Mental Status Exam Patient Appearance: Well Grooomed and Appropriate Patient Orientation: Person and Situation Level of Consciousness: Awake and Appropriate Patient Behavior: Guarded and Passive Mood Description: Withdrawn and Constricted Affect Description: Calm Patient Cognition Impaired: Yes Ability to Follow Directions: Good Speech Pattern: Clear Hallucinations: None Delusions: Not Present Thought Process: Linear Thought Content: positive for [place] and positive for Poverty of Content Judgement: Fair Diagnostics Vital Signs (24Hr): Vital Signs - 24 hr 04/24/23 18:00 Temperature 96.2 F L Pulse Rate 79 Respiratory Rate 18 Blood Pressure 157/92 H Pulse Oximetry 97 Oxygen Delivery Method Room Air BMI result Body Mass Index 22.9 Labs 04/21/23 06:11 Medications Medications Current Medications Acetaminophen (Acetaminophen 325 Mg Tablet) 650 mg PO Q6H PRN PRN Reason: Headache/Pain Mild Scale (1-3) Al Hydroxide/Mg Hydroxide (Magnesium Hydrox/Alum Hydrox 30 Ml Oral.Susp) 30 ml PO Q6H PRN PRN Reason: Heartburn/Nausea Capsaicin (Capsaicin 0.025% Cream 60 Gm Tube) 1 appl TOPICAL TID PRN; Protocol PRN Reason: Pain, Moderate(Pain Scale 4-6) Clonazepam (Clonazepam 0.5 Mg Tablet) 0.5 mg PO BEDTIME PRN PRN Reason: Sleep Last Admin: 04/24/23 22:06 Dose: 0.5 mg Cyclobenzaprine HCl (Cyclobenzaprine Hcl 10 Mg Tablet) 10 mg PO TID PRN PRN Reason: muscle spasm Hydroxyzine HCl (Hydroxyzine Hcl 25 Mg Tablet) 25 mg PO Q6H PRN PRN Reason: Anxiety Last Admin: 04/23/23 14:35 Dose: 25 mg Loperamide HCl (Loperamide Hcl 2 Mg Capsule) 2 mg PO Q4H PRN PRN Reason: Loose Stool Magnesium Hydroxide (Milk Of Magnesia 30 Ml Oral.Susp) 30 ml PO DAILY PRN PRN Reason: Constipation Nicotine Polacrilex (Nicotine Polacrilex 2 Mg Gum) 2 mg BUCCAL Q2H PRN PRN Reason: Nicotine Cravings Olanzapine (Olanzapine 5 Mg Tablet) 5 mg PO TID PRN PRN Reason: agitation Last Admin: 04/24/23 13:47 Dose: 5 mg Olanzapine (Olanzapine 10 Mg Tablet) 10 mg PO BEDTIME [facility] Last Admin: 04/24/23 20:49 Dose: 10 mg Oxcarbazepine (Oxcarbazepine 300 Mg Tablet) 300 mg PO BID [facility] Last Admin: 04/25/23 08:29 Dose: 300 mg Trazodone HCl (Trazodone Hcl 50 Mg Tablet) 50 mg PO BEDTIME PRN PRN Reason: Insomnia Last Admin: 04/21/23 20:52 Dose: 50 mg Allergies Allergies Allergy/AdvReac Type Severity Reaction Status Date / Time nickel Allergy Unknown Unknown Verified 04/20/23 15:12 Assessment & Plan Assessment & Plan (1) Bipolar 1 disorder, depressed: Status: Acute Code(s): F31.9 - Bipolar disorder, unspecified Plan Pt is a 73-year-old female with a PMH significant for?bipolar disorder, anxiety, and depression who is admitted to [facility] for increasing depression with SI with plan to overdose on pills after she was not invited to a family trip to [place]. Medical consult for admission H&P. Mood disorder Plan as per Psychiatry Polyuria Will obtain UA Follow UA, cultures Unsteadiness of feet Pt has been ambulating with walker while on unit, which is new to her Check orthostatics PT consult Continue use of walker as necessary Nicotine dependence NRT: jose antonio Thank you for allowing us to participate in the care of this patient. Will follow UA resutls. Please let us know if there are any acute complaints or questions. Plan 1. Gather collateral information. 2. Continue with psychotropics. 3. Reassessment with results. Reason for continued inpatient stay Substantial Risk for: inability to function, rapid decompensation and med/psych decompensation Time Spent With Patient Time: Total time managing care of this patient today _20___ minutes.
[2023-04-25] MEDS: OLANZapine 5 MG TABLET PO (17:55)
[2023-04-25 18:00] VITALS: BP 137/84; PULSE 79; RESP 18
[2023-04-25] MEDS: OLANZapine 10 MG TABLET PO (20:04)
[2023-04-25] MEDS: traZODone HCL 50 MG TABLET PO (21:26)
[2023-04-26 08:20] VITALS: BP 135/78; PULSE 76; RESP 18; TEMP 36.6; O2SAT 97
[2023-04-26] MEDS: OXcarbazepine 300 MG TABLET PO ×2 (08:35→21:01)
--- NOTE | 2023-04-26 10:13 | P.PNPSI_ITS ---
Subjective Subjective Date of Service: 04/26/23 Reason For Visit: Bipolar Subjective Notes: Conditional Voluntary Interim History: Pt slept through the night. Pt up early this morning and took a shower. she continues to present with some disorganized thought process. Pt reminded about family meeting today- later pt asking who is going to tell me the truth? Pt a ppeared suspicious about staff and her . During family meeting, pt kept stating I shouldn't talk I can't go back until I pay for the things I did wrong. When asked what did she do wrong, pt states I said I was going to stop smoking and I didn't. Pt somewhat irritable with when he asked questions about her care. Pt later was looking outside the window, she stated those cars are there for me. She states she thinks God send them to see a miracle. When asked about what miracle pt stated I am the miracle. Pt also at times more tearful- which has been observed while she has been here. She does report feeling depressed. She does denied SI/HI. Diagnostics Vital Signs (24Hr): Vital Signs - 24 hr 04/25/23 18:00 04/26/23 08:20 Temperature 97.9 F Pulse Rate 79 76 Respiratory Rate 18 18 Blood Pressure 137/84 135/78 Pulse Oximetry 97 Oxygen Delivery Method Room Air BMI result Body Mass Index 22.9 Labs 04/21/23 06:11 Medications Medications Current Medications Acetaminophen (Acetaminophen 325 Mg Tablet) 650 mg PO Q6H PRN PRN Reason: Headache/Pain Mild Scale (1-3) Al Hydroxide/Mg Hydroxide (Magnesium Hydrox/Alum Hydrox 30 Ml Oral.Susp) 30 ml PO Q6H PRN PRN Reason: Heartburn/Nausea Capsaicin (Capsaicin 0.025% Cream 60 Gm Tube) 1 appl TOPICAL TID PRN; Protocol PRN Reason: Pain, Moderate(Pain Scale 4-6) Cyclobenzaprine HCl (Cyclobenzaprine Hcl 10 Mg Tablet) 10 mg PO TID PRN PRN Reason: muscle spasm Hydroxyzine HCl (Hydroxyzine Hcl 25 Mg Tablet) 25 mg PO Q6H PRN PRN Reason: Anxiety Last Admin: 04/23/23 14:35 Dose: 25 mg Loperamide HCl (Loperamide Hcl 2 Mg Capsule) 2 mg PO Q4H PRN PRN Reason: Loose Stool Magnesium Hydroxide (Milk Of Magnesia 30 Ml Oral.Susp) 30 ml PO DAILY PRN PRN Reason: Constipation Nicotine Polacrilex (Nicotine Polacrilex 2 Mg Gum) 2 mg BUCCAL Q2H PRN PRN Reason: Nicotine Cravings Olanzapine (Olanzapine 5 Mg Tablet) 5 mg PO TID PRN PRN Reason: agitation Last Admin: 04/25/23 17:55 Dose: 5 mg Olanzapine (Olanzapine 10 Mg Tablet) 10 mg PO BEDTIME [facility] Last Admin: 04/25/23 20:04 Dose: 10 mg Oxcarbazepine (Oxcarbazepine 300 Mg Tablet) 300 mg PO BID [facility] Last Admin: 04/26/23 08:35 Dose: 300 mg Trazodone HCl (Trazodone Hcl 50 Mg Tablet) 50 mg PO BEDTIME PRN PRN Reason: Insomnia Last Admin: 04/25/23 21:26 Dose: 50 mg Allergies Allergies Allergy/AdvReac Type Severity Reaction Status Date / Time nickel Allergy Unknown Unknown Verified 04/20/23 15:12 Assessment & Plan Assessment & Plan (1) Bipolar 1 disorder, depressed: Status: Acute Code(s): F31.9 - Bipolar disorder, unspecified Plan Pt is a 73-year-old female with a PMH significant for?bipolar disorder, anxiety, and depression who is admitted to [facility] for increasing depression with SI with plan to overdose on pills after she was not invited to a family trip to [place]. Medical consult for admission H&P. Mood disorder Plan as per Psychiatry Polyuria Will obtain UA Follow UA, cultures Unsteadiness of feet Pt has been ambulating with walker while on unit, which is new to her Check orthostatics PT consult Continue use of walker as necessary Nicotine dependence NRT: jose antonio Thank you for allowing us to participate in the care of this patient. Will follow UA resutls. Please let us know if there are any acute complaints or questions. Plan 1. Gather collateral information. 2. Continue with psychotropics. 3. Reassessment with results. 04/26- Pending Collateral information from Dr. Ja Forde ([phone]). Left message with school attendance secretary with call back number.. reports gait problems (shuffling) have started in last month, along with increase confusions. reports she does not present as usual when not doing well psychiatrically as she presents with more neurological concerns including poor concentration, confused at times and disorganized speech. Will give cyanocobalamine 1000mcg IM, B12 low 216- may help cognition, energy. Pt does need higher dose of antipsychotic but reported dizziness and over sedation with higher dose of olanzapine. Reason for continued inpatient stay Substantial Risk for: inability to function Time Spent With Patient Time: Total time managing care of this patient today ____ minutes.
[2023-04-26] MEDS: hydrOXYzine HCL 25 MG TABLET PO (12:22)
[2023-04-26] MEDS: Cyanocobalamin (Vitamin B-12) 1,000 MCG/ML VIAL 1000 MCG IM (14:17)
[2023-04-26 16:02] LABS: Alanine Aminotransferase 42 U/L (0-31); Albumin Level 3.8 g/dL (3.5-5.0); Alkaline Phosphatase 93 U/L (39-117); Anion Gap 18 (12-20); Aspartate Amino Transferase 31 U/L (5-31); Bilirubin Total 0.2 mg/dL (0.0-1.0); Blood Urea Nitrogen 13 mg/dL (9-16); Calcium 9.9 mg/dL (8.4-10.2); Carbon Dioxide 20 mmol/L (22-29); Chloride 108 mmol/L (96-108); Creatinine Clr Calc Pharmacy 53.3; Estimated Glomerular Filt Rate > 60; Glucose Random 106 mg/dL (60-115); Potassium 3.6 mmol/L (3.3-5.1); Sodium 142 mmol/L (135-145); Total Protein 6.6 g/dL (6.5-8.0)
[2023-04-26 20:00] VITALS: BP 173/87; PULSE 63; TEMP 36.2; O2SAT 95
[2023-04-26 21:00] VITALS: BP 159/75; PULSE 70; RESP 16
[2023-04-26] MEDS: OLANZapine 10 MG TABLET PO (21:01)
[2023-04-26] MEDS: LORazepam 0.5 MG TABLET PO (21:01)
[2023-04-27 08:05] VITALS: BP 162/94; PULSE 89; RESP 18; TEMP 36.2; O2SAT 94
[2023-04-27] MEDS: LORazepam 0.5 MG TABLET PO ×2 (08:40→21:21)
[2023-04-27] MEDS: OLANZapine 5 MG TABLET PO (08:40)
[2023-04-27] MEDS: OXcarbazepine 300 MG TABLET PO ×2 (08:40→21:22)
--- NOTE | 2023-04-27 13:17 | HO.PSYCHPN ---
Subjective Subjective Date of Service: 04/27/23 Reason For Visit: Bipolar Subjective Notes: Conditional Voluntary Interim History: Pt continues to present as internally preoccupied, concerned about the number of cars outside and how they are there for her. She reports feeling tired, appears very anxious and dysphoric. She denies SI/HI. Per nursing, pt slept through the night. Medication Compliance: Yes Review of Systems Review of Systems Pt denies chest pain. She reports feeling like there is dirt in her eyes She reports loose stools. She reports poor appetite She reports back pain and feeling weak. Mental Status Exam Mental Status Exam Narrative: Appearance: wearing casual clothing, tearful sad looking Behavior: guarded at times Psychomotor: Psychomotor retarded complains of lethargy Speech: clear, some mild delayed in response rate, regular rhythm/volume, spontaneous TP: mostly linear but some circumstantiality TC: wanting to go home , does state she and her have been arguing poverty of content Mood: tired Affect: congruent SI: denies HI: denies AH/VH: denies Delusions: somewhat guarded, no overt delusional content Insight/judgment: Does accept that she has psychiatric illness she has a history of bipolar disorder Memory/cog: alert, oriented to place, month, year. pending MOCA. Patient Appearance: Well Grooomed and Appropriate Patient Orientation: Person and Situation Level of Consciousness: Awake and Appropriate Patient Behavior: Guarded and Passive Mood Description: Withdrawn and Constricted Affect Description: Calm Patient Cognition Impaired: Yes Ability to Follow Directions: Good Speech Pattern: Clear Diagnostics Vital Signs (24Hr): Vital Signs - 24 hr 04/26/23 20:00 04/26/23 21:00 04/27/23 08:05 Temperature 97.2 F 97.2 F Pulse Rate 63 70 89 Respiratory Rate 16 18 Blood Pressure 173/87 H 159/75 H 162/94 H Pulse Oximetry 95 94 Oxygen Delivery Method Room Air Room Air BMI result Body Mass Index 22.9 Labs 04/26/23 15:39 Labs: Laboratory Results - last 48 hr 04/26/23 15:39 Sodium 142 Potassium 3.6 Chloride 108 Carbon Dioxide 20 L Anion Gap 18 BUN 13 Creatinine 0.80 Estim Creat Clear Calc 53.3 Estimated GFR > 60 Random Glucose 106 Calcium 9.9 Total Bilirubin 0.2 AST 31 ALT 42 H Alkaline Phosphatase 93 Total Protein 6.6 Albumin 3.8 Imaging Radiology Impressions: ITS Impressions Head CT 04/26/23 18:00 IMPRESSION: No acute intracranial abnormality including hemorrhage, mass effect, hydrocephalus, or acute territorial edematous infarction. Medications Medications Current Medications Acetaminophen (Acetaminophen 325 Mg Tablet) 650 mg PO Q6H PRN PRN Reason: Headache/Pain Mild Scale (1-3) Al Hydroxide/Mg Hydroxide (Magnesium Hydrox/Alum Hydrox 30 Ml Oral.Susp) 30 ml PO Q6H PRN PRN Reason: Heartburn/Nausea Capsaicin (Capsaicin 0.025% Cream 60 Gm Tube) 1 appl TOPICAL TID PRN; Protocol PRN Reason: Pain, Moderate(Pain Scale 4-6) Cyanocobalamin (Cyanocobalamin (Vitamin B-12) 1,000 Mcg/Ml Vial) 1,000 mcg IM Q7D [facility] Stop: 05/17/23 14:01 Last Admin: 04/26/23 14:17 Dose: 1,000 mcg Cyclobenzaprine HCl (Cyclobenzaprine Hcl 10 Mg Tablet) 10 mg PO TID PRN PRN Reason: muscle spasm Hydroxyzine HCl (Hydroxyzine Hcl 25 Mg Tablet) 25 mg PO Q6H PRN PRN Reason: Anxiety Last Admin: 04/26/23 12:22 Dose: 25 mg Loperamide HCl (Loperamide Hcl 2 Mg Capsule) 2 mg PO Q4H PRN PRN Reason: Loose Stool Lorazepam (Lorazepam 0.5 Mg Tablet) 0.5 mg PO BID [facility] Last Admin: 04/27/23 08:40 Dose: 0.5 mg Magnesium Hydroxide (Milk Of Magnesia 30 Ml Oral.Susp) 30 ml PO DAILY PRN PRN Reason: Constipation Nicotine Polacrilex (Nicotine Polacrilex Lozenge 2 Mg Lozenge) 2 mg BUCCAL Q2H PRN PRN Reason: smoking cessation Olanzapine (Olanzapine 5 Mg Tablet) 5 mg PO TID PRN PRN Reason: agitation Last Admin: 04/25/23 17:55 Dose: 5 mg Olanzapine (Olanzapine 10 Mg Tablet) 10 mg PO BEDTIME [facility] Last Admin: 04/26/23 21:01 Dose: 10 mg Olanzapine (Olanzapine 5 Mg Tablet) 5 mg PO DAILY [facility] Last Admin: 04/27/23 08:40 Dose: 5 mg Oxcarbazepine (Oxcarbazepine 300 Mg Tablet) 300 mg PO BID [facility] Last Admin: 04/27/23 08:40 Dose: 300 mg Trazodone HCl (Trazodone Hcl 50 Mg Tablet) 50 mg PO BEDTIME PRN PRN Reason: Insomnia Last Admin: 04/25/23 21:26 Dose: 50 mg Allergies Allergies Allergy/AdvReac Type Severity Reaction Status Date / Time nickel Allergy Unknown Unknown Verified 04/20/23 15:12 Assessment & Plan Assessment & Plan (1) Bipolar 1 disorder, depressed: Status: Acute Code(s): F31.9 - Bipolar disorder, unspecified Plan Pt is a 73-year-old female with a PMH significant for?bipolar disorder, anxiety, and depression who is admitted to [facility] for increasing depression with SI with plan to overdose on pills after she was not invited to a family trip to [place]. Medical consult for admission H&P. Mood disorder Plan as per Psychiatry Polyuria Will obtain UA Follow UA, cultures Unsteadiness of feet Pt has been ambulating with walker while on unit, which is new to her Check orthostatics PT consult Continue use of walker as necessary Nicotine dependence NRT: jose antonio Thank you for allowing us to participate in the care of this patient. Will follow UA resutls. Please let us know if there are any acute complaints or questions. Plan 1. Gather collateral information. 2. Continue with psychotropics. 3. Reassessment with results. 04/26- Pending Collateral information from Dr. Ja Forde ([phone]). Left message with improvement nurse with call back number.. reports gait problems (shuffling) have started in last month, along with increase confusions. reports she does not present as usual when not doing well psychiatrically as she presents with more neurological concerns including poor concentration, confused at times and disorganized speech. Will give cyanocobalamine 1000mcg IM, B12 low 216- may help cognition, energy. Pt does need higher dose of antipsychotic but reported dizziness and over sedation with higher dose of olanzapine. 04/27 continue current medications, olanzapine increased to 5mg po daily and 10mg po qhs. Reason for continued inpatient stay Substantial Risk for: inability to function Time Spent With Patient Time: Total time managing care of this patient today ____ minutes.
[2023-04-27 19:10] VITALS: BP 129/81; PULSE 97; RESP 18; TEMP 36.7; O2SAT 98
[2023-04-27] MEDS: OLANZapine 10 MG TABLET PO (21:22)
[2023-04-27 23:23] LABS: Lyme Abs Screen <0.90 index
[2023-04-28 08:51] VITALS: BP 134/88; PULSE 104; RESP 18; TEMP 36.1; O2SAT 96
[2023-04-28] MEDS: OXcarbazepine 300 MG TABLET PO ×2 (08:54→20:48)
[2023-04-28] MEDS: LORazepam 0.5 MG TABLET PO ×2 (08:54→20:48)
[2023-04-28] MEDS: OLANZapine 5 MG TABLET PO (08:54)
[2023-04-28] MEDS: Nicotine Polacrilex Lozenge 2 MG LOZENGE BUCCAL ×2 (14:12→17:20)
--- NOTE | 2023-04-28 14:13 | P.PNPSI_ITS ---
Subjective Subjective Date of Service: 04/28/23 Reason For Visit: Bipolar Subjective Notes: Conditional Voluntary Interim History: Pt presents as more linear. She reports her mood is better in that she is not depressed. She still worries about cars being outside, but does question if cars are there for her or not. She denies SI/HI. She does report feeling tired. Pt visible during meals, not interacting with peers as much. No behavioral concerns. Review of Systems Review of Systems Pt denies chest pain. She reports feeling like there is dirt in her eyes She reports loose stools. She reports poor appetite She reports back pain and feeling weak. Mental Status Exam Mental Status Exam Narrative: Appearance: wearing casual clothing, tearful sad looking Behavior: guarded at times Psychomotor: Psychomotor retarded complains of lethargy Speech: clear, some mild delayed in response rate, regular rhythm/volume, spontaneous TP: mostly linear but some circumstantiality TC: wanting to go home , does state she and her have been arguing poverty of content Mood: tired Affect: congruent SI: denies HI: denies AH/VH: denies Delusions: somewhat guarded, no overt delusional content Insight/judgment: Does accept that she has psychiatric illness she has a history of bipolar disorder Memory/cog: alert, oriented to place, month, year. pending MOCA. Patient Appearance: Well Grooomed and Appropriate Patient Orientation: Person and Situation Level of Consciousness: Awake and Appropriate Patient Behavior: Guarded and Passive Mood Description: Withdrawn and Constricted Affect Description: Calm Patient Cognition Impaired: Yes Ability to Follow Directions: Good Speech Pattern: Clear Diagnostics Vital Signs (24Hr): Vital Signs - 24 hr 04/27/23 19:10 04/28/23 08:51 Temperature 98.0 F 97.0 F Pulse Rate 97 104 H Respiratory Rate 18 18 Blood Pressure 129/81 134/88 Pulse Oximetry 98 96 Oxygen Delivery Method Room Air Room Air BMI result Body Mass Index 22.9 Labs 04/26/23 15:39 Labs: Laboratory Results - last 48 hr 04/26/23 04/26/23 15:39 15:39 Sodium 142 Potassium 3.6 Chloride 108 Carbon Dioxide 20 L Anion Gap 18 BUN 13 Creatinine 0.80 Estim Creat Clear Calc 53.3 Estimated GFR > 60 Random Glucose 106 Calcium 9.9 Total Bilirubin 0.2 AST 31 ALT 42 H Alkaline Phosphatase 93 Total Protein 6.6 Albumin 3.8 Lyme Screen IgG & IgM <0.90 Imaging Radiology Impressions: ITS Impressions Head CT 04/26/23 18:00 IMPRESSION: No acute intracranial abnormality including hemorrhage, mass effect, hydrocephalus, or acute territorial edematous infarction. Medications Medications Current Medications Acetaminophen (Acetaminophen 325 Mg Tablet) 650 mg PO Q6H PRN PRN Reason: Headache/Pain Mild Scale (1-3) Al Hydroxide/Mg Hydroxide (Magnesium Hydrox/Alum Hydrox 30 Ml Oral.Susp) 30 ml PO Q6H PRN PRN Reason: Heartburn/Nausea Capsaicin (Capsaicin 0.025% Cream 60 Gm Tube) 1 appl TOPICAL TID PRN; Protocol PRN Reason: Pain, Moderate(Pain Scale 4-6) Cyanocobalamin (Cyanocobalamin (Vitamin B-12) 1,000 Mcg/Ml Vial) 1,000 mcg IM Q7D [facility] Stop: 05/17/23 14:01 Last Admin: 04/26/23 14:17 Dose: 1,000 mcg Cyclobenzaprine HCl (Cyclobenzaprine Hcl 10 Mg Tablet) 10 mg PO TID PRN PRN Reason: muscle spasm Hydroxyzine HCl (Hydroxyzine Hcl 25 Mg Tablet) 25 mg PO Q6H PRN PRN Reason: Anxiety Last Admin: 04/26/23 12:22 Dose: 25 mg Loperamide HCl (Loperamide Hcl 2 Mg Capsule) 2 mg PO Q4H PRN PRN Reason: Loose Stool Lorazepam (Lorazepam 0.5 Mg Tablet) 0.5 mg PO BID [facility] Last Admin: 04/28/23 08:54 Dose: 0.5 mg Magnesium Hydroxide (Milk Of Magnesia 30 Ml Oral.Susp) 30 ml PO DAILY PRN PRN Reason: Constipation Nicotine Polacrilex (Nicotine Polacrilex Lozenge 2 Mg Lozenge) 2 mg BUCCAL Q2H PRN PRN Reason: smoking cessation Olanzapine (Olanzapine 5 Mg Tablet) 5 mg PO TID PRN PRN Reason: agitation Last Admin: 04/25/23 17:55 Dose: 5 mg Olanzapine (Olanzapine 10 Mg Tablet) 10 mg PO BEDTIME [facility] Last Admin: 04/27/23 21:22 Dose: 10 mg Olanzapine (Olanzapine 5 Mg Tablet) 5 mg PO DAILY [facility] Last Admin: 04/28/23 08:54 Dose: 5 mg Oxcarbazepine (Oxcarbazepine 300 Mg Tablet) 300 mg PO BID [facility] Last Admin: 04/28/23 08:54 Dose: 300 mg Trazodone HCl (Trazodone Hcl 50 Mg Tablet) 50 mg PO BEDTIME PRN PRN Reason: Insomnia Last Admin: 04/25/23 21:26 Dose: 50 mg Allergies Allergies Allergy/AdvReac Type Severity Reaction Status Date / Time nickel Allergy Unknown Unknown Verified 04/20/23 15:12 Assessment & Plan Assessment & Plan (1) Bipolar 1 disorder, depressed: Status: Acute Code(s): F31.9 - Bipolar disorder, unspecified Plan Pt is a 73-year-old female with a PMH significant for?bipolar disorder, anxiety, and depression who is admitted to [facility] for increasing depression with SI with plan to overdose on pills after she was not invited to a family trip to [place]. Medical consult for admission H&P. Mood disorder Plan as per Psychiatry Polyuria Will obtain UA Follow UA, cultures Unsteadiness of feet Pt has been ambulating with walker while on unit, which is new to her Check orthostatics PT consult Continue use of walker as necessary Nicotine dependence NRT: jose antonio Thank you for allowing us to participate in the care of this patient. Will follow UA resutls. Please let us know if there are any acute complaints or questions. Plan 1. Gather collateral information. 2. Continue with psychotropics. 3. Reassessment with results. 04/26- Pending Collateral information from Dr. Ja Forde ([phone]). Left message with medical records secretary with call back number.. reports gait problems (shuffling) have started in last month, along with increase confusions. reports she does not present as usual when not doing well psychiatrically as she presents with more neurological concerns including poor concentration, confused at times and disorganized speech. Will give cyanocobalamine 1000mcg IM, B12 low 216- may help cognition, energy. Pt does nee d higher dose of antipsychotic but reported dizziness and over sedation with higher dose of olanzapine. 04/27 continue current medications, olanzapine increased to 5mg po daily and 10mg po qhs. 04/28 continue current medications. Reason for continued inpatient stay Substantial Risk for: inability to function Time Spent With Patient Time: Total time managing care of this patient today ____ minutes.
[2023-04-28 18:00] VITALS: BP 129/84; PULSE 72; RESP 18; TEMP 36.6; O2SAT 98
[2023-04-28] MEDS: OLANZapine 10 MG TABLET PO (20:48)
[2023-04-29] MEDS: OLANZapine 5 MG TABLET PO (09:02)
[2023-04-29] MEDS: OXcarbazepine 300 MG TABLET PO ×2 (09:02→20:58)
[2023-04-29] MEDS: LORazepam 0.5 MG TABLET PO ×2 (09:02→20:58)
[2023-04-29] MEDS: Nicotine Polacrilex Lozenge 2 MG LOZENGE BUCCAL ×2 (10:00→14:38)
[2023-04-29 18:00] VITALS: BP 138/89; PULSE 82; RESP 18; TEMP 36.7; O2SAT 97
[2023-04-29] MEDS: Benztropine Mesylate 0.5 MG TABLET PO (20:58)
[2023-04-29] MEDS: risperiDONE 1 MG TABLET PO (20:58)
[2023-04-30] MEDS: Acetaminophen 325 MG TABLET 650 MG PO (00:05)
[2023-04-30] MEDS: hydrOXYzine HCL 25 MG TABLET PO (00:06)
[2023-04-30] MEDS: traZODone HCL 50 MG TABLET PO (00:06)
[2023-04-30 06:00] VITALS: BP 132/71; PULSE 99; RESP 16; O2SAT 97
--- NOTE | 2023-04-30 07:21 | HO.PSYCHPN ---
Subjective Subjective Date of Service: 04/29/23 Reason For Visit: Bipolar Subjective Notes: Conditional Voluntary Interim History: Today, pt presents as internally preoccupied. She does report that mood is better and it appears that paranoia is less which in turn was causing increase anxiety, ruminations. Pt suspicious of medications. She does denied SI/HI. She is visible for meals but also spends time in her room alone. She denies physical pain. We discussed switching to risperidone as olanzapine too sedating at higher doses for her. Review of Systems Review of Systems Pt denies chest pain. She reports feeling like there is dirt in her eyes She reports loose stools. She reports poor appetite She reports back pain and feeling weak. Mental Status Exam Mental Status Exam Narrative: Appearance: wearing casual clothing, tearful sad looking Behavior: guarded at times Psychomotor: Psychomotor retarded complains of lethargy Speech: clear, some mild delayed in response rate, regular rhythm/volume, spontaneous TP: mostly linear but some circumstantiality TC: wanting to go home , does state she and her have been arguing poverty of content Mood: tired Affect: congruent SI: denies HI: denies AH/VH: denies Delusions: somewhat guarded, no overt delusional content Insight/judgment: Does accept that she has psychiatric illness she has a history of bipolar disorder Memory/cog: alert, oriented to place, month, year. pending MOCA. Diagnostics Vital Signs (24Hr): Vital Signs - 24 hr 04/29/23 18:00 Temperature 98.1 F Pulse Rate 82 Respiratory Rate 18 Blood Pressure 138/89 Pulse Oximetry 97 Oxygen Delivery Method Room Air BMI result Body Mass Index 22.9 Labs 04/26/23 15:39 Labs: Laboratory Results - last 48 hr 04/26/23 15:39 Lyme Progressive Test TNP Imaging Radiology Impressions: ITS Impressions Head CT 04/26/23 18:00 IMPRESSION: No acute intracranial abnormality including hemorrhage, mass effect, hydrocephalus, or acute territorial edematous infarction. Medications Medications Current Medications Acetaminophen (Acetaminophen 325 Mg Tablet) 650 mg PO Q6H PRN PRN Reason: Headache/Pain Mild Scale (1-3) Last Admin: 04/30/23 00:05 Dose: 650 mg Al Hydroxide/Mg Hydroxide (Magnesium Hydrox/Alum Hydrox 30 Ml Oral.Susp) 30 ml PO Q6H PRN PRN Reason: Heartburn/Nausea Benztropine Mesylate (Benztropine Mesylate 0.5 Mg Tablet) 0.5 mg PO BID [facility] Last Admin: 04/29/23 20:58 Dose: 0.5 mg Capsaicin (Capsaicin 0.025% Cream 60 Gm Tube) 1 appl TOPICAL TID PRN; Protocol PRN Reason: Pain, Moderate(Pain Scale 4-6) Cyanocobalamin (Cyanocobalamin (Vitamin B-12) 1,000 Mcg/Ml Vial) 1,000 mcg IM Q7D [facility] Stop: 05/17/23 14:01 Last Admin: 04/26/23 14:17 Dose: 1,000 mcg Cyclobenzaprine HCl (Cyclobenzaprine Hcl 10 Mg Tablet) 10 mg PO TID PRN PRN Reason: muscle spasm Hydroxyzine HCl (Hydroxyzine Hcl 25 Mg Tablet) 25 mg PO Q6H PRN PRN Reason: Anxiety Last Admin: 04/30/23 00:06 Dose: 25 mg Loperamide HCl (Loperamide Hcl 2 Mg Capsule) 2 mg PO Q4H PRN PRN Reason: Loose Stool Lorazepam (Lorazepam 0.5 Mg Tablet) 0.5 mg PO BEDTIME [facility] Last Admin: 04/29/23 20:58 Dose: 0.5 mg Magnesium Hydroxide (Milk Of Magnesia 30 Ml Oral.Susp) 30 ml PO DAILY PRN PRN Reason: Constipation Nicotine Polacrilex (Nicotine Polacrilex Lozenge 2 Mg Lozenge) 2 mg BUCCAL Q2H PRN PRN Reason: smoking cessation Last Admin: 04/29/23 14:38 Dose: 2 mg Olanzapine (Olanzapine 5 Mg Tablet) 5 mg PO TID PRN PRN Reason: agitation Last Admin: 04/25/23 17:55 Dose: 5 mg Oxcarbazepine (Oxcarbazepine 300 Mg Tablet) 300 mg PO BID [facility] Last Admin: 04/29/23 20:58 Dose: 300 mg Risperidone (Risperidone 1 Mg Tablet) 1 mg PO BID [facility] Last Admin: 04/29/23 20:58 Dose: 1 mg Trazodone HCl (Trazodone Hcl 50 Mg Tablet) 50 mg PO BEDTIME PRN PRN Reason: Insomnia Last Admin: 04/30/23 00:06 Dose: 50 mg Allergies Allergies Allergy/AdvReac Type Severity Reaction Status Date / Time nickel Allergy Unknown Unknown Verified 04/20/23 15:12 Assessment & Plan Assessment & Plan (1) Bipolar 1 disorder, depressed: Status: Acute Code(s): F31.9 - Bipolar disorder, unspecified Plan Pt is a 73-year-old female with a PMH significant for?bipolar disorder, anxiety, and depression who is admitted to [facility] for increasing depression with SI with plan to overdose on pills after she was not invited to a family trip to [place]. Medical consult for admission H&P. Mood disorder Plan as per Psychiatry Polyuria Will obtain UA Follow UA, cultures Unsteadiness of feet Pt has been ambulating with walker while on unit, which is new to her Check orthostatics PT consult Continue use of walker as necessary Nicotine dependence NRT: jose antonio Thank you for allowing us to participate in the care of this patient. Will follow UA resutls. Please let us know if there are any acute complaints or questions. Plan 1. Gather collateral information. 2. Continue with psychotropics. 3. Reassessment with results. 04/26- Pending Collateral information from Dr. Ja Forde ([phone]). Left message with secretary book keeper with call back number.. reports gait problems (shuffling) have started in last month, along with increase confusions. reports she does not present as usual when not doing well psychiatrically as she presents with more neurological concerns including poor concentration, confused at times and disorganized speech. Will give cyanocobalamine 1000mcg IM, B12 low 216- may help cognition, energy. Pt does need higher dose of antipsychotic but reported dizziness and over sedation with higher dose of olanzapine. 04/27 continue current medications, olanzapine increased to 5mg po daily and 10mg po qhs. 04/28 continue current medications. 04/29 switched to risperidone as continued to present with psychosis and paranoid but does not tolerate higher doses of olanzapine as it is too sedating. will monitor shuffling gait. No EPS or cogwheel noted on upper extremities. Reason for continued inpatient stay Substantial Risk for: inability to function Time Spent With Patient Time: Total time managing care of this patient today ____ minutes.
[2023-04-30] MEDS: OXcarbazepine 300 MG TABLET PO ×2 (09:14→21:22)
[2023-04-30] MEDS: Benztropine Mesylate 0.5 MG TABLET PO ×2 (09:14→21:23)
[2023-04-30] MEDS: risperiDONE 1 MG TABLET PO ×2 (09:14→21:22)
[2023-04-30] MEDS: Nicotine Polacrilex Lozenge 2 MG LOZENGE BUCCAL (10:10)
--- NOTE | 2023-04-30 14:26 | HO.PSYCHPN ---
Subjective Subjective Date of Service: 04/30/23 Reason For Visit: Bipolar Subjective Notes: Conditional Voluntary Interim History: Per nursing, pt woke up once at midnight and went back to sleep. Pt tearful at times, stating everyone is trying to give me advice. Pt denies SI/HI. She reports she misses home but worries that once she goes back that she again feels depressed or confused. She reports appetite is good. No behavioral concerns. We discussed starting aricept for memory impairments- may be more vascular or combination. Review of Systems Review of Systems Pt denies chest pain. She reports feeling like there is dirt in her eyes She reports loose stools. She reports poor appetite She reports back pain and feeling weak. Mental Status Exam Mental Status Exam Narrative: Appearance: wearing casual clothing, tearful sad looking Behavior: guarded at times Psychomotor: no agitation or retardation noted Speech: clear, some mild delayed in response rate, regular rhythm/volume, spontaneous TP: mostly linear TC: feeling better but worried she may get worse once she gets home. Mood: tired Affect: congruent SI: denies HI: denies AH/VH: denies Delusions: somewhat guarded, no overt delusional content Insight/judgment: Does accept that she has psychiatric illness she has a history of bipolar disorder Memory/cog: alert, oriented to place, month, year.MOCA 08/26. ACL 3.6 Diagnostics Vital Signs (24Hr): Vital Signs - 24 hr 04/29/23 18:00 04/30/23 06:00 Temperature 98.1 F Pulse Rate 82 99 Respiratory Rate 18 16 Blood Pressure 138/89 132/71 Pulse Oximetry 97 97 Oxygen Delivery Method Room Air Room Air BMI result Body Mass Index 22.9 Labs 04/26/23 15:39 Labs: Laboratory Results - last 48 hr 04/26/23 15:39 Lyme Progressive Test TNP Imaging Radiology Impressions: ITS Impressions Head CT 04/26/23 18:00 IMPRESSION: No acute intracranial abnormality including hemorrhage, mass effect, hydrocephalus, or acute territorial edematous infarction. Medications Medications Current Medications Acetaminophen (Acetaminophen 325 Mg Tablet) 650 mg PO Q6H PRN PRN Reason: Headache/Pain Mild Scale (1-3) Last Admin: 04/30/23 00:05 Dose: 650 mg Al Hydroxide/Mg Hydroxide (Magnesium Hydrox/Alum Hydrox 30 Ml Oral.Susp) 30 ml PO Q6H PRN PRN Reason: Heartburn/Nausea Benztropine Mesylate (Benztropine Mesylate 0.5 Mg Tablet) 0.5 mg PO BID [facility] Last Admin: 04/30/23 09:14 Dose: 0.5 mg Capsaicin (Capsaicin 0.025% Cream 60 Gm Tube) 1 appl TOPICAL TID PRN; Protocol PRN Reason: Pain, Moderate(Pain Scale 4-6) Cyanocobalamin (Cyanocobalamin (Vitamin B-12) 1,000 Mcg/Ml Vial) 1,000 mcg IM Q7D [facility] Stop: 05/17/23 14:01 Last Admin: 04/26/23 14:17 Dose: 1,000 mcg Cyclobenzaprine HCl (Cyclobenzaprine Hcl 10 Mg Tablet) 10 mg PO TID PRN PRN Reason: muscle spasm Hydroxyzine HCl (Hydroxyzine Hcl 25 Mg Tablet) 25 mg PO Q6H PRN PRN Reason: Anxiety Last Admin: 04/30/23 00:06 Dose: 25 mg Loperamide HCl (Loperamide Hcl 2 Mg Capsule) 2 mg PO Q4H PRN PRN Reason: Loose Stool Lorazepam (Lorazepam 0.5 Mg Tablet) 0.5 mg PO BEDTIME [facility] Last Admin: 04/29/23 20:58 Dose: 0.5 mg Magnesium Hydroxide (Milk Of Magnesia 30 Ml Oral.Susp) 30 ml PO DAILY PRN PRN Reason: Constipation Nicotine Polacrilex (Nicotine Polacrilex Lozenge 2 Mg Lozenge) 2 mg BUCCAL Q2H PRN PRN Reason: smoking cessation Last Admin: 04/30/23 10:10 Dose: 2 mg Olanzapine (Olanzapine 5 Mg Tablet) 5 mg PO TID PRN PRN Reason: agitation Last Admin: 04/25/23 17:55 Dose: 5 mg Oxcarbazepine (Oxcarbazepine 300 Mg Tablet) 300 mg PO BID [facility] Last Admin: 04/30/23 09:14 Dose: 300 mg Risperidone (Risperidone 1 Mg Tablet) 1 mg PO BID [facility] Last Admin: 04/30/23 09:14 Dose: 1 mg Trazodone HCl (Trazodone Hcl 50 Mg Tablet) 50 mg PO BEDTIME PRN PRN Reason: Insomnia Last Admin: 04/30/23 00:06 Dose: 50 mg Allergies Allergies Allergy/AdvReac Type Severity Reaction Status Date / Time nickel Allergy Unknown Unknown Verified 04/20/23 15:12 Assessment & Plan Assessment & Plan (1) Bipolar 1 disorder, depressed: Status: Acute Code(s): F31.9 - Bipolar disorder, unspecified (2) Cognitive impairment: Status: Acute Code(s): R41.89 - Other symptoms and signs involving cognitive functions and awareness Plan Pt is a 73-year-old female with a PMH significant for?bipolar disorder, anxiety, and depression who is admitted to [facility] for increasing depression with SI with plan to overdose on pills after she was not invited to a family trip to [place]. Medical consult for admission H&P. Mood disorder Plan as per Psychiatry Polyuria Will obtain UA Follow UA, cultures Unsteadiness of feet Pt has been ambulating with walker while on unit, which is new to her Check orthostatics PT consult Continue use of walker as necessary Nicotine dependence NRT: jose antonio Thank you for allowing us to participate in the care of this patient. Will follow UA resutls. Please let us know if there are any acute complaints or questions. Plan 1. Gather collateral information. 2. Continue with psychotropics. 3. Reassessment with results. 04/26- Pending Collateral information from Dr. Ja Forde ([phone]). Left message with board of education secretary with call back number.. reports gait problems (shuffling) have started in last month, along with increase confusions. reports she does not present as usual when not doing well psychiatrically as she presents with more neurological concerns including poor concentration, confused at times and disorganized speech. Will give cyanocobalamine 1000mcg IM, B12 low 216- may help cognition, energy. Pt does need higher dose of antipsychotic but reported dizziness and over sedation with higher dose of olanzapine. 04/27 continue current medications, olanzapine increased to 5mg po daily and 10mg po qhs. 04/28 continue current medications. 04/29 switched to risperidone as continued to present with psychosis and paranoid but does not tolerate higher doses of olanzapine as it is too sedating. will monitor shuffling gait. No EPS or cogwheel noted on upper extremities. 04/29 add remeron for sleep. continue risperidone. add aricept for memory impairment- appears to be combination of vascular and AD or mostly vascular. Reason for continued inpatient stay Substantial Risk for: inability to function Time Spent With Patient Time: Total time managing care of this patient today ____ minutes.
[2023-04-30] MEDS: Donepezil HCl 5 MG TABLET PO (15:34)
[2023-04-30 21:14] VITALS: BP 177/99; PULSE 81; RESP 18; TEMP 36.3; O2SAT 98
[2023-04-30] MEDS: Magnesium Oxide 400 MG TABLET PO (21:22)
[2023-04-30] MEDS: Mirtazapine 15 MG TABLET PO (21:23)
[2023-04-30] MEDS: LORazepam 0.5 MG TABLET PO (21:24)
[2023-05-01 09:02] VITALS: BP 123/83; PULSE 92; RESP 16; TEMP 36.4; O2SAT 96
[2023-05-01] MEDS: Benztropine Mesylate 0.5 MG TABLET PO ×2 (09:04→21:08)
[2023-05-01] MEDS: Donepezil HCl 5 MG TABLET PO (09:04)
[2023-05-01] MEDS: OXcarbazepine 300 MG TABLET PO ×2 (09:04→21:07)
[2023-05-01] MEDS: risperiDONE 1 MG TABLET PO ×2 (09:04→21:07)
--- NOTE | 2023-05-01 11:48 | P.PNPSI_ITS ---
Subjective Subjective Date of Service: 05/01/23 Reason For Visit: Bipolar Subjective Notes: Conditional Voluntary Interim History: Patient was seen and discussed in rounds today. Records and plans were reviewed. She had some elevation of blood pressure yesterday but that stabilized and is fine this morning. She continues to be confused. Compliant with her medication. Eating and sleeping adequately. No complaints or side effects. No behavioral issues reported. No changes were made today Review of Systems Review of Systems Yes all other systems are reviewed and are negative Mental Status Exam Mental Status Exam Narrative: In today's visit she is alert, oriented to place and person. Normal speech. Moderate eye contact. Affect is flat. Mood is okay. No overt signs of psychosis but is somewhat guarded. No dangerous behaviors. Judgment is impaired. Diagnostics Vital Signs (24Hr): Vital Signs - 24 hr 04/30/23 21:14 05/01/23 09:02 Temperature 97.3 F 97.5 F Pulse Rate 81 92 Respiratory Rate 18 16 Blood Pressure 177/99 H 123/83 Pulse Oximetry 98 96 Oxygen Delivery Method Room Air Room Air BMI result Body Mass Index 22.9 Labs 04/26/23 15:39 Imaging Radiology Impressions: ITS Impressions Head CT 04/26/23 18:00 IMPRESSION: No acute intracranial abnormality including hemorrhage, mass effect, hydrocephalus, or acute territorial edematous infarction. Medications Medications Current Medications Acetaminophen (Acetaminophen 325 Mg Tablet) 650 mg PO Q6H PRN PRN Reason: Headache/Pain Mild Scale (1-3) Last Admin: 04/30/23 00:05 Dose: 650 mg Al Hydroxide/Mg Hydroxide (Magnesium Hydrox/Alum Hydrox 30 Ml Oral.Susp) 30 ml PO Q6H PRN PRN Reason: Heartburn/Nausea Benztropine Mesylate (Benztropine Mesylate 0.5 Mg Tablet) 0.5 mg PO BID [facility] Last Admin: 05/01/23 09:04 Dose: 0.5 mg Capsaicin (Capsaicin 0.025% Cream 60 Gm Tube) 1 appl TOPICAL TID PRN; Protocol PRN Reason: Pain, Moderate(Pain Scale 4-6) Cyanocobalamin (Cyanocobalamin (Vitamin B-12) 1,000 Mcg/Ml Vial) 1,000 mcg IM Q7D [facility] Stop: 05/17/23 14:01 Last Admin: 04/26/23 14:17 Dose: 1,000 mcg Cyclobenzaprine HCl (Cyclobenzaprine Hcl 10 Mg Tablet) 10 mg PO TID PRN PRN Reason: muscle spasm Donepezil HCl (Donepezil Hcl 5 Mg Tablet) 5 mg PO DAILY [facility] Last Admin: 05/01/23 09:04 Dose: 5 mg Hydroxyzine HCl (Hydroxyzine Hcl 25 Mg Tablet) 25 mg PO Q6H PRN PRN Reason: Anxiety Last Admin: 04/30/23 00:06 Dose: 25 mg Loperamide HCl (Loperamide Hcl 2 Mg Capsule) 2 mg PO Q4H PRN PRN Reason: Loose Stool Lorazepam (Lorazepam 0.5 Mg Tablet) 0.5 mg PO BEDTIME [facility] Last Admin: 04/30/23 21:24 Dose: 0.5 mg Magnesium Hydroxide (Milk Of Magnesia 30 Ml Oral.Susp) 30 ml PO DAILY PRN PRN Reason: Constipation Magnesium Oxide (Magnesium Oxide 400 Mg Tablet) 400 mg PO BEDTIME [facility] Last Admin: 04/30/23 21:22 Dose: 400 mg Mirtazapine (Mirtazapine 15 Mg Tablet) 15 mg PO BEDTIME [facility] Last Admin: 04/30/23 21:23 Dose: 15 mg Naproxen (Naproxen 250 Mg Tablet) 250 mg PO BIDWM PRN PRN Reason: headache Nicotine Polacrilex (Nicotine Polacrilex Lozenge 2 Mg Lozenge) 2 mg BUCCAL Q2H PRN PRN Reason: smoking cessation Last Admin: 04/30/23 10:10 Dose: 2 mg Olanzapine (Olanzapine 5 Mg Tablet) 5 mg PO TID PRN PRN Reason: agitation Last Admin: 04/25/23 17:55 Dose: 5 mg Oxcarbazepine (Oxcarbazepine 300 Mg Tablet) 300 mg PO BID [facility] Last Admin: 05/01/23 09:04 Dose: 300 mg Risperidone (Risperidone 1 Mg Tablet) 1 mg PO BID [facility] Last Admin: 05/01/23 09:04 Dose: 1 mg Trazodone HCl (Trazodone Hcl 50 Mg Tablet) 50 mg PO BEDTIME PRN PRN Reason: Insomnia Last Admin: 04/30/23 00:06 Dose: 50 mg Allergies Allergies Allergy/AdvReac Type Severity Reaction Status Date / Time nickel Allergy Unknown Unknown Verified 04/20/23 15:12 Assessment & Plan Assessment & Plan (1) Bipolar 1 disorder, depressed: Status: Acute Code(s): F31.9 - Bipolar disorder, unspecified (2) Cognitive impairment: Status: Acute Code(s): R41.89 - Other symptoms and signs involving cognitive functions and awareness Plan Pt is a 73-year-old female with a PMH significant for?bipolar disorder, anxiety, and depression who is admitted to [facility] for increasing depression with SI with plan to overdose on pills after she was not invited to a family trip to [place]. Medical consult for admission H&P. Mood disorder Plan as per Psychiatry Polyuria Will obtain UA Follow UA, cultures Unsteadiness of feet Pt has been ambulating with walker while on unit, which is new to her Check orthostatics PT consult Continue use of walker as necessary Nicotine dependence NRT: jose antonio Thank you for allowing us to participate in the care of this patient. Will follow UA resutls. Please let us know if there are any acute complaints or questions. Plan 1. Gather collateral information. 2. Continue with psychotropics. 3. Reassessment with results. 04/26- Pending Collateral information from Dr. Ja Forde ([phone]). Left message with secretary board of commissioners with call back number.. reports gait problems (shuffling) have started in last month, along with increase confusions. reports she does not present as usual when not doing well psychiatrically as she presents with more neurological concerns including poor concentration, confused at times and disorganized speech. Will give cyanocobalamine 1000mcg IM, B12 low 216- may help cognition, energy. Pt does need higher dose of antipsychotic but reported dizziness and over sedation with higher dose of olanzapine. 04/27 continue current medications, olanzapine increased to 5mg po daily and 10mg po qhs. 04/28 continue current medications. 04/29 switched to risperidone as continued to present with psychosis and paranoid but does not tolerate higher doses of olanzapine as it is too sedating. will monitor shuffling gait. No EPS or cogwheel noted on upper extremities. 04/29 add remeron for sleep. continue risperidone. add aricept for memory impairment- appears to be combination of vascular and AD or mostly vascular. 05/01: Continue current regimen and plans Reason for continued inpatient stay Substantial Risk for: inability to function Time Spent With Patient Time: Total time managing care of this patient today ____ minutes.
[2023-05-01] MEDS: hydrOXYzine HCL 25 MG TABLET PO (13:50)
[2023-05-01] MEDS: Nicotine Polacrilex Lozenge 2 MG LOZENGE BUCCAL (17:19)
[2023-05-01 19:50] VITALS: BP 141/82; PULSE 72; RESP 18; TEMP 36.4; O2SAT 98
[2023-05-01] MEDS: Mirtazapine 15 MG TABLET PO (21:08)
[2023-05-01] MEDS: Magnesium Oxide 400 MG TABLET PO (21:09)
[2023-05-01] MEDS: LORazepam 0.5 MG TABLET PO (21:10)
[2023-05-02] MEDS: NaPROXEN 250 MG TABLET PO (00:12)
[2023-05-02 08:50] VITALS: BP 134/76; PULSE 105; RESP 16; TEMP 36.7; O2SAT 96
[2023-05-02] MEDS: Benztropine Mesylate 0.5 MG TABLET PO ×2 (08:51→20:57)
[2023-05-02] MEDS: risperiDONE 1 MG TABLET PO ×2 (08:51→20:57)
[2023-05-02] MEDS: OXcarbazepine 300 MG TABLET PO ×2 (08:51→20:57)
[2023-05-02] MEDS: Donepezil HCl 5 MG TABLET PO (08:51)
--- NOTE | 2023-05-02 11:39 | P.PNPSI_ITS ---
Subjective Subjective Date of Service: 05/02/23 Reason For Visit: Bipolar Subjective Notes: Conditional Voluntary Interim History: Patient was seen and discussed in rounds today. Records and plans were reviewed. She has been stable and doing fairly well. Complains about her medications being too many into strong in feeling drowsy which does not appear to be the case to other observers. Eating and sleeping adequately. No changes were made today Review of Systems Review of Systems Yes all other systems are reviewed and are negative Mental Status Exam Mental Status Exam Narrative: In today's visit she is alert, oriented to place and person. Normal speech. Moderate eye contact. Affect is flat. Mood is okay. No overt signs of psychosis but is somewhat guarded. No dangerous behaviors. Judgment is impaired. Diagnostics Vital Signs (24Hr): Vital Signs - 24 hr 05/01/23 19:50 05/02/23 08:50 Temperature 97.6 F 98.1 F Pulse Rate 72 105 H Respiratory Rate 18 16 Blood Pressure 141/82 H 134/76 Pulse Oximetry 98 96 Oxygen Delivery Method Room Air Room Air BMI result Body Mass Index 22.9 Labs 04/26/23 15:39 Imaging Radiology Impressions: ITS Impressions Head CT 04/26/23 18:00 IMPRESSION: No acute intracranial abnormality including hemorrhage, mass effect, hydrocephalus, or acute territorial edematous infarction. Medications Medications Current Medications Acetaminophen (Acetaminophen 325 Mg Tablet) 650 mg PO Q6H PRN PRN Reason: Headache/Pain Mild Scale (1-3) Last Admin: 04/30/23 00:05 Dose: 650 mg Al Hydroxide/Mg Hydroxide (Magnesium Hydrox/Alum Hydrox 30 Ml Oral.Susp) 30 ml PO Q6H PRN PRN Reason: Heartburn/Nausea Benztropine Mesylate (Benztropine Mesylate 0.5 Mg Tablet) 0.5 mg PO BID [facility] Last Admin: 05/02/23 08:51 Dose: 0.5 mg Capsaicin (Capsaicin 0.025% Cream 60 Gm Tube) 1 appl TOPICAL TID PRN; Protocol PRN Reason: Pain, Moderate(Pain Scale 4-6) Cyanocobalamin (Cyanocobalamin (Vitamin B-12) 1,000 Mcg/Ml Vial) 1,000 mcg IM Q7D [facility] Stop: 05/17/23 14:01 Last Admin: 04/26/23 14:17 Dose: 1,000 mcg Cyclobenzaprine HCl (Cyclobenzaprine Hcl 10 Mg Tablet) 10 mg PO TID PRN PRN Reason: muscle spasm Donepezil HCl (Donepezil Hcl 5 Mg Tablet) 5 mg PO DAILY [facility] Last Admin: 05/02/23 08:51 Dose: 5 mg Hydroxyzine HCl (Hydroxyzine Hcl 25 Mg Tablet) 25 mg PO Q6H PRN PRN Reason: Anxiety Last Admin: 05/01/23 13:50 Dose: 25 mg Loperamide HCl (Loperamide Hcl 2 Mg Capsule) 2 mg PO Q4H PRN PRN Reason: Loose Stool Lorazepam (Lorazepam 0.5 Mg Tablet) 0.5 mg PO BEDTIME [facility] Last Admin: 05/01/23 21:10 Dose: 0.5 mg Magnesium Hydroxide (Milk Of Magnesia 30 Ml Oral.Susp) 30 ml PO DAILY PRN PRN Reason: Constipation Magnesium Oxide (Magnesium Oxide 400 Mg Tablet) 400 mg PO BEDTIME [facility] Last Admin: 05/01/23 21:09 Dose: 400 mg Mirtazapine (Mirtazapine 15 Mg Tablet) 15 mg PO BEDTIME [facility] Last Admin: 05/01/23 21:08 Dose: 15 mg Naproxen (Naproxen 250 Mg Tablet) 250 mg PO BIDWM PRN PRN Reason: headache Last Admin: 05/02/23 00:12 Dose: 250 mg Nicotine Polacrilex (Nicotine Polacrilex Lozenge 2 Mg Lozenge) 2 mg BUCCAL Q2H PRN PRN Reason: smoking cessation Last Admin: 05/01/23 17:19 Dose: 2 mg Olanzapine (Olanzapine 5 Mg Tablet) 5 mg PO TID PRN PRN Reason: agitation Last Admin: 04/25/23 17:55 Dose: 5 mg Oxcarbazepine (Oxcarbazepine 300 Mg Tablet) 300 mg PO BID [facility] Last Admin: 05/02/23 08:51 Dose: 300 mg Risperidone (Risperidone 1 Mg Tablet) 1 mg PO BID [facility] Last Admin: 05/02/23 08:51 Dose: 1 mg Trazodone HCl (Trazodone Hcl 50 Mg Tablet) 50 mg PO BEDTIME PRN PRN Reason: Insomnia Last Admin: 04/30/23 00:06 Dose: 50 mg Allergies Allergies Allergy/AdvReac Type Severity Reaction Status Date / Time nickel Allergy Unknown Unknown Verified 04/20/23 15:12 Assessment & Plan Assessment & Plan (1) Bipolar 1 disorder, depressed: Status: Acute Code(s): F31.9 - Bipolar disorder, unspecified (2) Cognitive impairment: Status: Acute Code(s): R41.89 - Other symptoms and signs involving cognitive functions and awareness Plan Pt is a 73-year-old female with a PMH significant for?bipolar disorder, anxiety, and depression who is admitted to [facility] for increasing depression with SI with plan to overdose on pills after she was not invited to a family trip to [place]. Medical consult for admission H&P. Mood disorder Plan as per Psychiatry Polyuria Will obtain UA Follow UA, cultures Unsteadiness of feet Pt has been ambulating with walker while on unit, which is new to her Check orthostatics PT consult Continue use of walker as necessary Nicotine dependence NRT: jose antonio Thank you for allowing us to participate in the care of this patient. Will follow UA resutls. Please let us know if there are any acute complaints or questions. Plan 1. Gather collateral information. 2. Continue with psychotropics. 3. Reassessment with results. 04/26- Pending Collateral information from Dr. Ja Forde ([phone]). Left message with legal secretary receptionist with call back number.. reports gait problems (shuffling) have started in last month, along with increase confusions. reports she does not present as usual when not doing well psychiatrically as she presents with more neurological concerns including poor concentration, confused at times and disorganized speech. Will give cyanocobalamine 1000mcg IM, B12 low 216- may help cognition, energy. Pt does need higher dose of antipsychotic but reported dizziness and over sedation with higher dose of olanzapine. 04/27 continue current medications, olanzapine increased to 5mg po daily and 10mg po qhs. 04/28 continue current medications. 04/29 switched to risperidone as continued to present with psychosis and paranoid but does not tolerate higher doses of olanzapine as it is too sedating. will monitor shuffling gait. No EPS or cogwheel noted on upper extremities. 04/29 add remeron for sleep. continue risperidone. add aricept for memory impairment- appears to be combination of vascular and AD or mostly vascular. 05/01: Continue current regimen and plans 05/02: Continue current plans and regimen Reason for continued inpatient stay Substantial Risk for: med/psych decompensation Time Spent With Patient Time: Total time managing care of this patient today ____ minutes.
[2023-05-02] MEDS: Nicotine Polacrilex Lozenge 2 MG LOZENGE BUCCAL (13:42)
[2023-05-02 18:00] VITALS: BP 152/87; PULSE 82; RESP 18; TEMP 36.4; O2SAT 98
[2023-05-02] MEDS: Magnesium Oxide 400 MG TABLET PO (20:57)
[2023-05-02] MEDS: Mirtazapine 15 MG TABLET PO (20:57)
[2023-05-02] MEDS: LORazepam 0.5 MG TABLET PO (20:57)
[2023-05-03] MEDS: Acetaminophen 325 MG TABLET 650 MG PO (04:42)
[2023-05-03 07:53] VITALS: BP 143/73; PULSE 94; RESP 18; TEMP 36; O2SAT 97
[2023-05-03] MEDS: Benztropine Mesylate 0.5 MG TABLET PO (08:19)
[2023-05-03] MEDS: Donepezil HCl 5 MG TABLET PO (08:20)
[2023-05-03] MEDS: OXcarbazepine 300 MG TABLET PO (08:20)
[2023-05-03] MEDS: risperiDONE 1 MG TABLET PO (08:20)
[2023-05-03] MEDS: Nicotine Polacrilex Lozenge 2 MG LOZENGE BUCCAL (08:21)
--- NOTE | 2023-05-03 10:53 | P.DS_ITS ---
DS: Providers Provider Date of Service: 05/03/23 Date of admission: 04/20/23 14:37 Primary care physician: Unknown Physician Consults: 04/20/23 15:12 Consult to Hospitalist Routine Comment: Consulting Provider: Hospitalist Reason For Exam: medical H&P 04/20/23 17:53 Consult to Hospitalist Routine Comment: Consulting Provider: Hospitalist Reason For Exam: admission physical 04/29/23 15:09 Consult to Neurology Routine Consulting Provider: [facility] Reason for consultation: shuffling gait Has provider been notified: Yes DS: Diagnosis Discharge Diagnosis (1) Bipolar 1 disorder, depressed: Status: Acute (2) Cognitive impairment: Status: Acute DS: Medications Discharge Medications Home Medications: Previous Rx's Medication Instructions Recorded benztropine 0.5 mg tablet 0.5 mg PO BID #60 tabs 05/03/23 donepezil 5 mg tablet 5 mg PO DAILY #10 tabs 05/03/23 magnesium oxide 400 mg (241.3 mg 400 mg PO BEDTIME #30 tabs 05/03/23 magnesium) tablet mirtazapine 15 mg tablet 15 mg PO BEDTIME #30 tabs 05/03/23 naproxen 250 mg tablet 250 mg PO BIDWM PRN headache #60 05/03/23 tabs nicotine (polacrilex) 2 mg buccal 2 mg buccal Q2H PRN smoking 05/03/23 lozenge cessation #30 ea risperidone 1 mg tablet 1 mg PO BID #60 tabs 05/03/23 Data Data Completed and Pending Completed studies during hospitalization [Text1]: 04/26/23 04/26/23 15:39 15:39 Sodium 142 Potassium 3.6 Chloride 108 Carbon Dioxide 20 L Anion Gap 18 BUN 13 Creatinine 0.80 Estim Creat Clear Calc 53.3 Estimated GFR > 60 Random Glucose 106 Calcium 9.9 Total Bilirubin 0.2 AST 31 ALT 42 H Alkaline Phosphatase 93 Total Protein 6.6 Albumin 3.8 Lyme Screen IgG & IgM <0.90 Lyme Progressive Test TNP 04/22/23 16:15 Urine clean catch - Urine agrawal top Urine Culture - Final Imaging Diagnostic Imaging Impressions Head CT 04/26/23 18:00 IMPRESSION: No acute intracranial abnormality including hemorrhage, mass effect, hydrocephalus, or acute territorial edematous infarction. DS: Summary Hospital Course Hospital Course: Mrs. Carter is a 73 year-old woman with hx of Bipolar Disorder who was brought on sect 12a from police to [facility] after son-in-law call reporting pt had endorse suicidal ideation with plan to OD due to misunderstanding that pt thought she was going on vacation with him and her grandchildren. Son-in-law was planning a vacation but not with pt. Per records, pt presented as guarded. She reported that neighbors had installed cameras to spy her. She denied SI/HI, but did acknowledge that she made comment to her son-in-law. Her utox was negative. CBC unremarkable. CMP- show slightly low potassium at? 3.3, BUN 13, Creatinine 0.83. UA showed some elevation in WBC and leukocites but culture not done or not available. In the records, it also states that there were some concern in terms of confusion. Pt was seen by psych iatry while in the ED. It appears they communicated with her outpatient psychiatrist, Dr. Thomas who reports pt recently taken off lithium due to neurological concerns and pt was started on trileptal, increased in the ED to 600mg po BID, continued on olanzapine, which was increase while in the ED to 20mg po qhs. On the unit, pt presents as guarded, somewhat irritable and bothered that this w riter is asking questions, stating is all in my records. Pt reports she did report suicidal ideation with plan to OD to son-in-law. She reports I screwed up, I just want to go home. Pt reports my is driving me crazy. When asked to elaborate, pt changes topic and asks about the clothing that she has here, stating there is a bathing suit,which is not the case. When asked about hearing voices, pt reports that she does not hear voices but later reports that she has heard her son-in-law and talking about her. She reports she does not know what they were saying because it was soft but states she is sure they were talking about her. She denies suicidal or homicidal ideation. She reports fair sleep. She reports I don't take clonazepam for personal reasons. She reports back pain. She reports she feels unsteady on her feet, now ambulating with walker, although at home is independent. Pt would not provide more? details as to why she feels unsteady in her feet. Past Psychiatric History: Inpatient: many in the past per record (no dates provided), last one 10/2020 OP: Dr. Thomas Past trials: olanzapine, lithium ( neurological se ), trileptal.? Hx of suicide attempts: many in past no details provided Medical Evaluation Reviewed: Yes HOSPITAL COURSE On the unit, pt was admitted on a CV and placed on 5 minutes checks for safety. Pt presented with paranoid ideas reporting that she thought cars outside were sent by God to spy on her. She was also very suspicious towards , medications and selected staff. Pt was noted to have a slight shuffling gait and she was utilizing walker to ambulate. No cogwheel or rigidity noted on upper extremities. Pt had been recently started outpatient on olanzapine. Pt did not tolerate increase on olanzapine as it was too sedating. She was switched to risperidone, 1mg po BID. It did not worsen EPS or gait. Her paranoid and visual and auditory hallucinations gradually decreased. Her thought process was more organized and logical. She was continued on trileptal- however, it was noticed that she had vertical nystagmus which seems to have been reason for her neurologist to stop lithium. Therefore, trileptal was stopped. As she was more stable, MOCA (score 11/30) was completed which showed impairments in executive function, visuo spatial and recall with fairly intact orientation. Note that head CT shows chronic atrophy and microvascular changes. She was started on aricept to slow down prograssion of what seems to be vascular dementia. Collateral information was gathered from her who came to visit often. He reported pt appeared in much improved condition and denied any safety concerns at time of discharged. Time spent discussing smoking cessation with patient: 3 to 10 minutes Status at Discharge Cognitive/behavioral status at discharge: Pt with brighter, non labile affect. No SI/HI. No overt delusional content noted or reported. Much less paranoid ideas. her thought process was much more linear and coherent. No aggression towards self or others. Functional status at discharge: independent ambulation Overall status at discharge: patient is progressing back to baseline Time Spent with Patient Time attestation: Total time managing care of this patient today ____ minutes. Discharge Plan Discharge Anticipated Discharge Date/Time: 05/03/23 10:37 Patient Disposition: Home, Self-Care Discharge Diagnosis: Bipolar type 1 disorder Cognitive impairment Referrals: Dr. Ja Thomas - Psychiatrist [Other] - 05/05/23 3:[address] Irlanda Glasgow - PCP [Other] - 05/10/23 11:30 am Physician,Unknown J [Primary Care Provider] - 1 Week Discharge Medications: New benztropine 0.5 mg Tablet 0.5 mg PO BID Qty: 60 0RF donepezil 5 mg Tablet 5 mg PO DAILY Qty: 10 0RF naproxen 250 mg Tablet 250 mg PO BIDWM PRN (Reason: headache) Qty: 60 0RF magnesium oxide 400 mg (241.3 mg magnesium) Tablet 400 mg PO BEDTIME Qty: 30 0RF mirtazapine 15 mg Tablet 15 mg PO BEDTIME Qty: 30 0RF risperidone 1 mg Tablet 1 mg PO BID Qty: 60 0RF nicotine (polacrilex) 2 mg Lozenge 2 mg buccal Q2H PRN (Reason: smoking cessation) Qty: 30 0RF Discontinued cyclobenzaprine 10 mg tablet 10 mg PO TID PRN (Reason: muscle spasm) lithium carbonate 600 mg capsule 600 mg PO BEDTIME oxcarbazepine 600 mg tablet 600 mg PO BEDTIME benztropine tablet 0.5 mg PO BID clonazepam tablet 0.5 mg PO BEDTIME PRN (Reason: Sleep) olanzapine 20 mg PO BEDTIME oxcarbazepine 300 mg tablet 300 mg PO DAILY Rx Instructions: in AM Discharge Orders: Discharge Order (Routine); Ordered 05/03/23 Ordered By: Lizbeth White Diet: Regular diet Activity on Discharge: As tolerated Stand Alone Forms: Patient Portal Discharge page, Community Support Care Plan Goals: 1. Maintain mood 2. No SI/HI 3. Less AH/VH, less delusion 4. No signs of aggression towards self or other Health Concerns: Follow up with PCP Plan of Treatment: 1. Take medications as prescribed 2. Go to nearest ED or call 911 in event of emergency Assessment: Pt with brighter, less suspicious and paranoid affect. No SI/HI. Less VH/AH, less delusions. Pt sleeping and eating through the night. No signs of aggression towards self or others. Discharge Date/Time: 05/03/23 11:35
--- NOTE | 2023-05-03 12:08 | PC.NURSE ---
Patient alert and oriented to person/situation. Pt aware of discharge and reports readiness for discharge. Denies pain. No SOB or respiratory distress noted. Denies SI/HI. Discharge instructions given to patient and pt's . Both educated on medications/appointments. Pt discharged with belongings. Accompanied by . Time of discharge 1135.
== END 2023-05-03 11:35 | disposition home or self-care (01) | DRG 885 ==
PROVIDERS: Psychiatry & Neurology Psychiatry; Student in an Organized Health Care Education/Training Program; Admitting Provider Psychiatry & Neurology Psychiatry; Visit Provider Social Worker
DX: F31.9 Bipolar disorder, unspecified (principal); R45.851 Suicidal ideations; R35.89 Other polyuria; R26.81 Unsteadiness on feet; F17.210 Nicotine dependence, cigarettes, uncomplicated; Z71.6 Tobacco abuse counseling; G31.84 Mild cognitive impairment of uncertain or unknown etiology; Z79.899 Other long term (current) drug therapy
CPT/HCPCS: 36415; 70450; 80053; 80061; 81001; 82607; 82746; 83036; 83735; 84443; 86617; 86618; 87086; 97161

== ENCOUNTER → 2023-04-20 14:37 | Outpatient (BNV) | payer MEDICARE, SELFPAY | PROVIDERS: Admitting Provider Psychiatry & Neurology Psychiatry; Visit Provider Student in an Organized Health Care Education/Training Program | DX: Z02.89 Encounter for other administrative examinations (principal) | CPT/HCPCS: 99429 ==

== ENCOUNTER → 2023-04-20 14:37 | Outpatient (BNV) | payer MEDICARE, SELFPAY | PROVIDERS: Admitting Provider Psychiatry & Neurology Psychiatry; Visit Provider Psychiatry & Neurology Psychiatry | DX: F31.4 Bipolar disorder, current episode depressed, severe, without psychotic features (principal) | CPT/HCPCS: 99232 ==

== ENCOUNTER → 2023-04-20 14:37 | Outpatient (BNV) | payer MEDICARE, SELFPAY | PROVIDERS: Admitting Provider Psychiatry & Neurology Psychiatry; Visit Provider Social Worker | DX: F31.4 Bipolar disorder, current episode depressed, severe, without psychotic features (principal); R41.89 Other symptoms and signs involving cognitive functions and awareness | CPT/HCPCS: 90792; 99231; 99232; 99238 ==